=== PATIENT | male | born 1980 | race Caucasian/White ===

== ENCOUNTER 2017-11-29 13:53 | Emergency (ER) | payer OTHER ==
[~2017-11-29] VITALS: Ht 177.8 cm; Wt 97.8 kg
[2017-11-29 13:59] VITALS: Ht 177.8 cm; Wt 97.8 kg
[2017-11-29] MEDS ORDERED: KETOROLAC TROMETHAMINE 30 MG/ML VIAL IV STA (14:18)
[2017-11-29] MEDS ORDERED: SODIUM CHLORIDE 0.9% 1000ML 1,000 ML IV STA (14:18)
[2017-11-29 14:44] LABS: BASO % 0.4 %; BASO ABS # 0.03 K/uL (0-0.2); EOS % 1.3 %; EOS ABS # 0.09 K/uL (0-0.5); HEMATOCRIT 48.7 % (42-52); HEMOGLOBIN 17.8 g/dL (14.0-18.0); IG# 0.02 K/uL (0.00-0.02); LYMPH % 27.5 %; LYMPH ABS # 1.94 K/uL (1.2-3.4); MEAN CELL VOLUME 89.9 fL (80-100); MEAN CORPUSCULAR HEMOGLOBIN 32.8 pg (25-34); MEAN CORPUSCULAR HGB CONC 36.6 g/dl (32-36); MEAN PLATELET VOLUME 9.1 fL (7.4-10.4); MONO % 11.2 %; MONO ABS # 0.79 K/uL (0.11-0.59); NEUT % 59.3 %; NEUT ABS # 4.18 K/uL (1.4-6.5); PLATELET COUNT 242 K/uL (130-400); RED CELL DISTRIBUTION WIDTH CV 13.1 % (11.5-14.5); RED CELL DISTRIBUTION WIDTH SD 42.7 fL (36.4-46.3); WHITE BLOOD COUNT 7.05 K/uL (4.8-10.8)
[2017-11-29 15:01] LABS: BLOOD UREA NITROGEN 13 mg/dl (7-18); CALCIUM 9.3 mg/dl (8.5-10.1); CARBON DIOXIDE 26 mmol/L (21-32); CKMB < 1.0 ng/ml (0.5-3.6); CREATININE 0.88 mg/dl (0.60-1.40); GLUCOSE 86 mg/dl (70-99); POTASSIUM 3.7 mmol/L (3.5-5.1); SODIUM 136 mmol/L (136-145)
--- NOTE | 2017-11-29 15:22 | DIAGNOSTIC IMAGING REPORT ---
CHEST ONE VIEW PORTABLE CLINICAL HISTORY: 36 years-old Male presenting with Chest Pain. TECHNIQUE: Portable upright AP view of the chest was obtained. COMPARISON: None. FINDINGS: Cardiomediastinal silhouette normal. No focal opacity. No large effusion or pneumothorax. Osseous structures normal. Upper abdomen normal. IMPRESSION: 1. No acute cardiopulmonary disease. Electronically signed by: Hunter Núñez M.D. 11/29/2017 3:21 PM Dictated Date/Time: 11/29/2017 3:20 PM
[2017-11-29] MEDS ORDERED: GI COCKTAIL PO STA (15:26)
[2017-11-29] MEDS ORDERED: LIDOCAINE HCL 2% VISC SOLN 20 ML UDC ONE (15:29)
[2017-11-29] MEDS ORDERED: ALUMINUM/MAGNESIUM SUSP 30 ML UDC ONE (15:30)
[2017-11-29 16:53] VITALS: BP 124/91; PULSE 87; TEMP 36.9; O2SAT 96
--- NOTE | 2017-11-29 17:50 | EMERGENCY ROOM VISIT NOTE ---
History Report prepared by Myranda: Anthony Blanca Under the Supervision of: Dr. Emanuel Roberts D.O. First contact with patient: 14:06 Chief Complaint: CHEST PAIN Stated Complaint: CHEST PAIN History of Present Illness The patient is a 36 year old male who presents to the Emergency Room with complaints of constant dull chest pain in the left pectoral region beginning 3 or 4 days ago. The patient states that he does not have a history of these symptoms. He reports that the pain is worsened when he pushes his shoulders forward. He states that it is not worse when he moves his arms. The patient notes that he felt slightly dizzy this morning. The patient reports that he smokes. Pain is also worsened when he palpates the spot on his chest. It also worsens with breathing as well. No other exacerbating or remitting factors. Patient denies swelling of calves, recent trips, history of immobilization or recent surgery, prior history of DVT, hemoptysis, and history of malignancy. Patient denies diabetes, hypertension, hyperlipidemia, CAD, and history of sudden at a young age. Pt denies headache, change in vision, fevers, shortness of breath, nausea, vomiting, diarrhea, pain with urination, and melena. Source of History: patient Onset: 3 or 4 days ago Position: chest Quality: dull Timing: constant Modifying Factors (Worsening): breathing, other (palpation) Associated Symptoms: No fevers, No headache, No SOB, No nausea, No vomiting , No diarrhea Note: dizziness Review of Systems See HPI for pertinent positives & negatives. A total of 10 systems reviewed and were otherwise negative. Past Medical & Surgical Medical Problems: (1) Kidney stones (2) MRSA Family History Patient reports no known family medical history. Social History Smoking Status: Current Every Day Smoker Marital Status: Housing Status: lives with family Occupation Status: employed Current/Historical Medications No Active Prescriptions or Reported Meds Allergies Coded Allergies: No Known Allergies (Unverified , 11/29/17) Physical Exam Vital Signs Date Time Temp Pulse Resp B/P (MAP) Pulse Ox O2 Delivery O2 Flow Rate FiO2 11/29/17 16:53 36.9 87 16 124/91 96 11/29/17 15:23 87 16 124/91 96 Room Air 11/29/17 14:34 92 11/29/17 13:59 36.9 110 18 152/99 97 Room Air Physical Exam GENERAL: Sitting up in bed, alert, well appearing, well nourished, no distress, non-toxic EYE EXAM: normal conjunctiva. OROPHARYNX: no exudate, no erythema, lips, buccal mucosa, and tongue normal and mucous membranes are moist NECK: supple, no nuchal rigidity, no adenopathy, non-tender CHEST: Acute reproducible anterior chest wall pain. LUNGS: Clear to auscultation. Normal chest wall mechanics HEART: no murmurs, S1 normal and S2 normal ABDOMEN: abdomen soft, non-tender, normo-active bowel sounds, no masses, no rebound or guarding. BACK: Back is symmetrical on inspection and there is no deformity, no midline tenderness, no CVA tenderness. SKIN: no rashes and no bruising UPPER EXTREMITIES: upper extremities are grossly normal. Radial pulses equal bilateral LOWER EXTREMITIES: No pitting edema. Calves are equal bilateral NEURO EXAM: Normal sensorium, cranial nerves II-XII grossly intact, normal speech, no gross weakness of arms, no gross weakness of legs. Medical Decision & Procedures ER Provider Diagnostic Interpretation: Radiology results as stated below per my review and the radiologist's interpretation: CHEST ONE VIEW PORTABLE CLINICAL HISTORY: 36 years-old Male presenting with Chest Pain. TECHNIQUE: Portable upright AP view of the chest was obtained. COMPARISON: None. FINDINGS: Cardiomediastinal silhouette normal. No focal opacity. No large effusion or pneumothorax. Osseous structures normal. Upper abdomen normal. IMPRESSION: 1. No acute cardiopulmonary disease. Electronically signed by: Hunter Núñez M.D. 11/29/2017 3:21 PM Dictated Date/Time: 11/29/2017 3:20 PM Laboratory Results 11/29/17 14:34 Red Blood Count 5.42, Mean Corpuscular Volume 89.9, Mean Corpuscular Hemoglobin 32.8, Mean Corpuscular Hemoglobin Concent 36.6, Mean Platelet Volume 9.1, Neutrophils (%) (Auto) 59.3, Lymphocytes (%) (Auto) 27.5, Monocytes (%) (Auto) 11.2, Eosinophils (%) (Auto) 1.3, Basophils (%) (Auto) 0.4, Neutrophils # (Auto ) 4.18, Lymphocytes # (Auto) 1.94, Monocytes # (Auto) 0.79, Eosinophils # (Auto ) 0.09, Basophils # (Auto) 0.03 11/29/17 14:34 Test 11/29/17 14:34 11/29/17 15:28 White Blood Count 7.05 K/uL (4.8-10.8) Red Blood Count 5.42 M/uL (4.7-6.1) Hemoglobin 17.8 g/dL (14.0-18.0) Hematocrit 48.7 % (42-52) Mean Corpuscular Volume 89.9 fL (80-100) Mean Corpuscular Hemoglobin 32.8 pg (25-34) Mean Corpuscular Hemoglobin Concent 36.6 g/dl (32-36) Platelet Count 242 K/uL (130-400) Mean Platelet Volume 9.1 fL (7.4-10.4) Neutrophils (%) (Auto) 59.3 % Lymphocytes (%) (Auto) 27.5 % Monocytes (%) (Auto) 11.2 % Eosinophils (%) (Auto) 1.3 % Basophils (%) (Auto) 0.4 % Neutrophils # (Auto) 4.18 K/uL (1.4-6.5) Lymphocytes # (Auto) 1.94 K/uL (1.2-3.4) Monocytes # (Auto) 0.79 K/uL (0.11-0.59) Eosinophils # (Auto) 0.09 K/uL (0-0.5) Basophils # (Auto) 0.03 K/uL (0-0.2) RDW Standard Deviation 42.7 fL (36.4-46.3) RDW Coefficient of Variation 13.1 % (11.5-14.5) Immature Granulocyte % (Auto) 0.3 % Immature Granulocyte # (Auto) 0.02 K/uL (0.00-0.02) Anion Gap 7.0 mmol/L (3-11) Est Creatinine Clear Calc Drug Dose 134.8 ml/min Estimated GFR () 127.2 Estimated GFR (Non- 109.7 BUN/Creatinine Ratio 15.2 (10-20) Calcium Level 9.3 mg/dl (8.5-10.1) Total Creatine Kinase 101 U/L (39-308) Creatine Kinase MB < 1.0 ng/ml (0.5-3.6) Creatine Kinase MB Ratio (0-3.0) Troponin I < 0.015 ng/ml (0-0.045) D-Dimer < 190 ug/L FEU (0-500) Laboratory results per my review. Medications Administered Medications (Trade) Dose Ordered Sig/Katia Route Start Time Stop Time Status Last Admin Dose Admin Sodium Chloride 1,000 ml @ 999 mls/hr Q1H1M STAT IV 11/29/17 14:18 11/29/17 15:18 DC 11/29/17 14:37 999 MLS/HR Ketorolac Tromethamine (Toradol Inj) 30 mg NOW STAT IV 11/29/17 14:18 11/29/17 14:19 DC 11/29/17 14:50 30 MG Lidocaine HCl (Viscous Lidocaine 2% Soln) 20 ml STK-MED ONCE .ROUTE 11/29/17 15:29 11/29/17 15:30 DC 11/29/17 15:32 20 ML Al Hydroxide/Mg Hydroxide (Maalox Susp) 30 ml STK-MED ONCE .ROUTE 11/29/17 15:30 11/29/17 15:31 DC 11/29/17 15:32 30 ML ECG Per My Interpretation Indication: chest pain Rate (beats per minute): 95 Rhythm: sinus rhythm Findings: other (normal axis. No PVCs.) ED Course ED COURSE: Vital signs were reviewed and showed hypertension that is felt to be situational The patients medical record was reviewed The above diagnostic studies were performed and reviewed. ED treatments and interventions as stated above. 1410: The patient was evaluated in room C9. A complete history and physical examination was performed. 1650: Upon reevaluation, the patient is resting. I discussed my findings with the patient and he understands and agrees with the treatment plan. Based on the patients age, coexisting illnesses, exam and lab findings the decision to treat as an outpatient was made. The patient remained stable while under my care. The patient appeared well at the time of discharge. Medical Decision Differential diagnoses includes but is not limited to acute coronary syndrome, myocardial infarction, pericarditis, pulmonary embolus, aortic dissection, pneumonia, pneumothorax, musculoskeletal, shingles, esophageal. Patient is a 36-year-old male that presents to the ER for chest pain which has been present for the past 3-4 days. Pain is worsened on palpation and movement. No other exacerbating or remitting factors. He does have a history of smoking. CBC with BMP and troponin were negative. Troponin negative with pain present greater than 8 hours. D-dimer was negative as well. Chest x-ray unremarkable. Pain was completely reproducible on exam. Patient was given Toradol and the pain significantly improved. He also did have a component of a burning/reflux is given a GI cocktail and that resolved that pain as well. He was updated at bedside discharge follow-up with PCP as an outpatient. Discussed with Pt concerning signs and symptoms to watch out for. Pt was instructed to follow up with their PCP and discussed with the patient their option to return to the ED at anytime for persistent or worsening symptoms. The appropriate anticipatory guidance and out-patient management, including indications for return to the emergency department, were explained at length to the patient and understood. Medication Reconcilliation Current Medication List: was personally reviewed by me Blood Pressure Screening Patient's blood pressure: Elevated blood pressure Blood pressure disposition: Elevated BP felt to be situational Impression Primary Impression: Chest wall pain Scribe Attestation The scribe's documentation has been prepared under my direction and personally reviewed by me in its entirety. I confirm that the note above accurately reflects all work, treatment, procedures, and medical decision making performed by me. Departure Information Dispostion Home / Self-Care Prescriptions No Active Prescriptions or Reported Meds Referrals Jaspreet Farmer III, M.D. (PCP) Forms Call Back Authorization, HOME CARE DOCUMENTATION FORM, IMPORTANT VISIT INFORMATION Patient Instructions My [facility] Additional Instructions Please make sure that you follow up with your PCP in the next 24 hours. Any worsening of her symptoms including chest pain, passing out, shortness of breath , weakness or numbness in your arms or legs, or any other concerning signs or symptoms please return to the ER immediately. Please take Motrin or Tylenol as needed for pain.
== END 2017-11-29 16:54 | disposition home or self-care (01) ==
LOC: C.EDB 13:54 → C.EDC 16:54
DX: R07.9 Chest pain, unspecified (principal); F17.200 Nicotine dependence, unspecified, uncomplicated

== ENCOUNTER 2022-01-28 10:33 | Inpatient (IN) ==
[2022-01-28] MEDS ORDERED: OPTIRAY 300 500mL IV ONE (10:55)
--- NOTE | 2022-01-28 10:58 | CT Scan Report ---
HEAD CT NONCONTRAST CT DOSE: 537.48 mGy.cm HISTORY: Weakness. Numbness within the right extremities. TECHNIQUE: Multiaxial CT images of the head were performed without the use of intravenous contrast. A utomated exposure control was utilized for this study. A dose lowering technique was utilized adheri ng to the principles of ALARA. Comparison: None. Findings: The paranasal sinuses and mastoid air cells are clear. The calvarium and skull base are int act. The ventricles and sulci are within normal limits. There is no mass, hematoma, midline shift, or acute infarct. Impression: No acute intracranial abnormality. ACT 112: Negative or not required by law. Electronically signed by: Mart Flowers M.D. 01/28/2022 10:57 AM
--- NOTE | 2022-01-28 10:59 | Emergency Department Note ---
Impression & Plan Acute cerebrovascular accident (CVA), Acute right-sided weakness, Dysarthria, Tobacco use ED Provider Note NAME: MILTON PANG AGE: 41 SEX: M : 1980 ARRIVES VIA: Walk-In INFORMANT: Patient, ED PROVIDER(S): Edward Ray MD Chief Complaint: Strokelike symptoms HPI: Patient does present through triage as a stroke alert due to concern for strokelike symptoms that began while driving around 9 AM this morning. The patient denies any head or neck pain but did notice some difficulty with ambulation and thought he had some weakness of the right side. The patient is in the [employer]. Patient denies any prior history of stroke or mini stroke and has no pertinent past medical history. The patient does not take any medications on a regular basis. Patient denies any recent falls or trauma. The patient states that he felt generally unwell while driving and then when he tried to fill out some paperwork he could not do so with his right arm and needed to to write with his left hand. Patient denies any chest pains or shortness of breath. The patient did also think that he had some associated slurred speech which has since resolved. The patient does not take any blood thinning medications. Patient states that other than the slurred speech this has improved but that his weakness has remained the same and has had associated ambulatory dysfunction. ROS: See HPI for pertinent positives and negatives. A total of 10 systems were reviewed and otherwise negative. Past medical history: See below Surgical history: See below Social history: See below Physical Exam: GENERAL: NAD, wearing a mask, non-toxic. EYE EXAM: Normal conjunctiva. PERRL, no anisocoria and EOM's grossly intact w/o pain. NECK: Supple, no nuchal rigidity, no adenopathy, non-tender. No signs of meningismus. FROM of the neck with good chin to chest and neck extension. No stridor. LUNGS: Clear to auscultation. Normal chest wall mechanics. HEART: NSR, no MRG. ABDOMEN: Abdomen soft, non-tender, normo-active bowel sounds, no masses, no rebound or guarding. BACK: No CVA TTP. SKIN: No rashes and no bruising. UPPER EXTREMITIES: Upper extremities are grossly normal. LOWER EXTREMITIES: Grossly normal, no edema. NEURO EXAM: A&O x3, cranial nerves II-XII grossly intact, normal speech, 4-5 strength right upper and right lower extremity compared to 5 out of 5 strength in left upper and left lower extremity. No sensory deficits, good [id number]. Differential diagnoses: Infection, dehydration, metabolic abnormality, hyp o/hyperglycemia, electrolyte disturbance, anemia, hypoxia, cardiac sources, intracerebral event, toxicologic, neurologic, as well as other pathologies. Course: Patient was seen and evaluated the bedside. Full history physical exam was performed. EKG interpreted by me Sinus tachycardia, rate of 104, normal intervals, normal axis, no ST elevations. Imaging Studies: See Below Cardiac monitoring: An order was placed for continuous cardiac monitoring. The monitor shows a rate of 82 with sinus rhythm. MDM: Patient was seen due to concern for strokelike symptoms. The patient was an immediate code stroke from triage and was taken to CT. I did evaluate the patient and did initiate a telestroke consult. Blood work was obtained. The patient did have a CT head and CT angiography of the head and neck. CT head and angiography's of the head and neck were negative. Patient was seen by telestroke. The patient has unremarkable blood work and imaging of the head and neck with negative CT and CT angiography. Decision was made to administer TN K after discussion with the patient. This was administered. The patient was admitted to the medicine service after speaking with Noreen Looney PA-C and Dr. Nelson. The patient was to be admitted to the intensive care unit. Critical Care: I have personally spent 45 minutes of critical care time in direct management of this patient. This includes bedside care, interpretation of diagnostic studies, and testing, discussion with consultants, patient, and family members, and other require inpatient management activities. This 45 minutes is in excess of all separately billable procedures. Past Med/Surg History Medical History (Updated 01/28/22 @ 16:58 by Edward Ray MD) Alcohol use Chest wall pain Kidney stones Stroke-like symptoms Thoracic compression fracture Thrombolytic therapy administered within 2 hours of onset of symptoms Tobacco abuse Surgical History No pertinent past surgical history Social History Smoking Status: Current every day smoker Tobacco Type: Cigarettes Do You Dip or Chew Tobacco: No; Hx Alcohol Use: Yes Alcohol type: hard liquor Hx Substance Use: No Preferred Language: Grenadian Communication Ability: Effective Field Specialist Required: No Beliefs That Will Affect Care: None Current Living Situation: Family Other Information That Helps Us Care for You: No Feels Safe at Home: Yes Safety Concerns: Feels Safe At This Time Assistive Devices: None Allergies Allergies Allergy/AdvReac Type Severity Reaction Status Date / Time No Known Allergies Allergy Unverified 01/28/22 11:29 Home Meds Home Medications Medication Instructions Recorded Confirmed trazodone 50 mg tablet 50 mg PO HS 01/28/22 01/28/22 Results & Data (ED) Vital Signs Vital Signs - 24 hr 01/28/22 10:38 01/28/22 10:40 01/28/22 10:40 Temperature 36.2 C L Temperature Source Temporal Artery Scan Pulse Rate 97 H 92 H Pulse Rate [Apical] Pulse Rate from SpO2 Sensor Pulse Rhythm Regular Pulse Strength Normal Respiratory Rate 20 Respiratory Effort / Characteristics Non-Labored Spontaneous Respiratory Depth Normal Respiratory Pattern Regular Blood Pressure 145/87 H Blood Pressure [Left Arm] Blood Pressure Mean 106 Blood Pressure Mean [Left Arm] Blood Pressure Position Sitting Pulse Oximetry 96 98 Oxygen Delivery Method Room Air Room Air Room Air Sepsis Recent Fever Within 48 Hours No Sepsis New/Unexplained Change in Mental Status No Sepsis Action Taken by Nursing No Action Required 01/28/22 10:34 01/28/22 11:04 01/28/22 11:51 Temperature Temperature Source Pulse Rate Pulse Rate [Apical] 92 H 87 Pulse Rate from SpO2 Sensor Pulse Rhythm Pulse Strength Respiratory Rate 16 16 Respiratory Effort / Characteristics Respiratory Depth Respiratory Pattern Blood Pressure Blood Pressure [Left Arm] 157/102 H 138/101 H Blood Pressure Mean Blood Pressure Mean [Left Arm] 120 113 Blood Pressure Position Pulse Oximetry 98 95 Oxygen Delivery Method Room Air Sepsis Recent Fever Within 48 Hours Sepsis New/Unexplained Change in Mental Status Sepsis Action Taken by Nursing 01/28/22 10:55 01/28/22 10:55 01/28/22 11:00 Temperature Temperature Source Pulse Rate 104 H Pulse Rate [Apical] Pulse Rate from SpO2 Sensor 104 H 93 H Pulse Rhythm Pulse Strength Respiratory Rate 13 13 Respiratory Effort / Characteristics Respiratory Depth Respiratory Pattern Blood Pressure 178/123 H Blood Pressure [Left Arm] Blood Pressure Mean 141 Blood Pressure Mean [Left Arm] Blood Pressure Position Pulse Oximetry 96 99 Oxygen Delivery Method Sepsis Recent Fever Within 48 Hours Sepsis New/Unexplained Change in Mental Status Sepsis Action Taken by Nursing 01/28/22 11:04 01/28/22 11:04 01/28/22 11:10 Temperature Temperature Source Pulse Rate 93 H Pulse Rate [Apical] Pulse Rate from SpO2 Sensor 92 H Pulse Rhythm Pulse Strength Respiratory Rate 20 11 L Respiratory Effort / Characteristics Respiratory Depth Respiratory Pattern Blood Pressure 157/102 H Blood Pressure [Left Arm] Blood Pressure Mean 120 Blood Pressure Mean [Left Arm] Blood Pressure Position Pulse Oximetry 97 Oxygen Delivery Method Sepsis Recent Fever Within 48 Hours Sepsis New/Unexplained Change in Mental Status Sepsis Action Taken by Nursing 01/28/22 11:14 01/28/22 11:14 01/28/22 11:15 Temperature Temperature Source Pulse Rate 95 H Pulse Rate [Apical] Pulse Rate from SpO2 Sensor Pulse Rhythm Pulse Strength Respiratory Rate 16 Respiratory Effort / Characteristics Respiratory Depth Respiratory Pattern Blood Pressure 144/102 H 145/95 H Blood Pressure [Left Arm] Blood Pressure Mean 116 111 Blood Pressure Mean [Left Arm] Blood Pressure Position Pulse Oximetry Oxygen Delivery Method Sepsis Recent Fever Within 48 Hours Sepsis New/Unexplained Change in Mental Status Sepsis Action Taken by Nursing 01/28/22 11:15 01/28/22 11:20 01/28/22 11:30 Temperature Temperature Source Pulse Rate 87 92 H Pulse Rate [Apical] Pulse Rate from SpO2 Sensor Pulse Rhythm Pulse Strength Respiratory Rate 15 17 Respiratory Effort / Characteristics Respiratory Depth Respiratory Pattern Blood Pressure 144/102 H Blood Pressure [Left Arm] Blood Pressure Mean 116 Blood Pressure Mean [Left Arm] Blood Pressure Position Pulse Oximetry Oxygen Delivery Method Sepsis Recent Fever Within 48 Hours Sepsis New/Unexplained Change in Mental Status Sepsis Action Taken by Nursing 01/28/22 11:30 01/28/22 11:38 01/28/22 11:38 Temperature Temperature Source Pulse Rate 84 86 Pulse Rate [Apical] Pulse Rate from SpO2 Sensor 88 Pulse Rhythm Pulse Strength Respiratory Rate 16 21 Respiratory Effort / Characteristics Respiratory Depth Respiratory Pattern Blood Pressure 134/97 Blood Pressure [Left Arm] Blood Pressure Mean 109 Blood Pressure Mean [Left Arm] Blood Pressure Position Pulse Oximetry 96 Oxygen Delivery Method Sepsis Recent Fever Within 48 Hours Sepsis New/Unexplained Change in Mental Status Sepsis Action Taken by Nursing 01/28/22 11:40 01/28/22 11:41 01/28/22 11:41 Temperature Temperature Source Pulse Rate 91 H 86 Pulse Rate [Apical] Pulse Rate from SpO2 Sensor 91 H 84 Pulse Rhythm Pulse Strength Respiratory Rate 16 20 Respiratory Effort / Characteristics Respiratory Depth Respiratory Pattern Blood Pressure 128/104 H Blood Pressure [Left Arm] Blood Pressure Mean 112 Blood Pressure Mean [Left Arm] Blood Pressure Position Pulse Oximetry 97 96 Oxygen Delivery Method Sepsis Recent Fever Within 48 Hours Sepsis New/Unexplained Change in Mental Status Sepsis Action Taken by Nursing 01/28/22 11:55 01/28/22 12:00 Temperature Temperature Source Pulse Rate Pulse Rate [Apical] 83 83 Pulse Rate from SpO2 Sensor Pulse Rhythm Pulse Strength Respiratory Rate 16 16 Respiratory Effort / Characteristics Respiratory Depth Respiratory Pattern Blood Pressure Blood Pressure [Left Arm] 138/101 H 132/93 Blood Pressure Mean Blood Pressure Mean [Left Arm] 113 106 Blood Pressure Position Pulse Oximetry 95 95 Oxygen Delivery Method Sepsis Recent Fever Within 48 Hours Sepsis New/Unexplained Change in Mental Status Sepsis Action Taken by [facility] Medications Current Medication List: was personally reviewed by me Laboratory Data Attestation: I reviewed the patient's lab results. Result diagrams: 01/28/22 10:54 01/28/22 10:54 Lab Results 01/28/22 01/28/22 01/28/22 Range/Units 10:54 10:54 10:54 WBC 5.33 (4.8-10.8) K/ul RBC 4.92 (4.63-6.08) M/uL Hgb 16.2 (14.0-18.0) g/dl POC Hgb (14.0-18.0) g/dl Hct 45.3 (40.1-51.0) % POC Hct (42-52) % MCV 92.1 (80.0-100.0) fL MCH 32.9 (25.0-34.0) pg MCHC 35.8 (32.0-36.0) g/dL RDW Std Deviation 43.0 (36.4-46.3) fL RDW Coeff of Sergio 12.8 (11.5-14.5) % Plt Count 220 (130-400) K/uL MPV 9.1 L (9.4-12.4) fL PT 11.3 (9.0-12.0) Seconds INR 1.1 (0.9-1.1) APTT 28.9 (21.0-31.0) Seconds PTT Ratio 1.1 POC Sodium (135-144) mmol/L Sodium 137 (136-145) mmol/L POC Potassium (3.3-5.0) mmol/L Potassium 4.3 (3.5-5.1) mmol/L POC Chloride (101-112) mmol/L Chloride 104 (98-107) mmol/L Carbon Dioxide 26 (21-32) mmol/L POC Total CO2 (24-31) mmol/L Anion Gap 7 (3-11) POC Anion Gap (16-25) mmol/L POC BUN (7-18) mg/dl BUN 14 (6-23) mg/dl Creatinine 0.95 (0.6-1.4) mg/dl POC Creatinine (0.6-1.3) mg/dl Est Cr Clr Drug Dosing 122.3 ml/min Est GFR ( Amer) 114.0 ml/min Est GFR (Non-Af Amer) 98.3 ml/min BUN/Creatinine Ratio 14.7 (10-20) Glucose 91 (70-99(Fasting)) mg/dl POC Glucose (other) (70-99) mg/dl Calcium 8.9 (8.5-10.1) mg/dl POC Ioniz Calcium Tulio (1.12-1.32) mmol/l Magnesium 1.8 (1.7-2.4) mg/dl Total Bilirubin 0.8 (0.2-1.0) mg/dl AST 23 (13-39) U/L ALT 29 (7-52) U/L Alkaline Phosphatase 54 (34-104) U/L Total Protein 6.6 (6.0-8.3) gm/dl Albumin 4.1 (3.4-5.0) gm/dl Globulin 2.5 (2.5-4.0) gm/dl Albumin/Globulin Ratio 1.6 (0.9-2) SARS-CoV-2, RNA, NAAT (NEGATIVE) 01/28/22 01/28/22 Range/Units 11:02 11:53 WBC (4.8-10.8) K/ul RBC (4.63-6.08) M/uL Hgb (14.0-18.0) g/dl POC Hgb 16.7 (14.0-18.0) g/dl Hct (40.1-51.0) % POC Hct 49 (42-52) % MCV (80.0-100.0) fL MCH (25.0-34.0) pg MCHC (32.0-36.0) g/dL RDW Std Deviation (36.4-46.3) fL RDW Coeff of Sergio (11.5-14.5) % Plt Count (130-400) K/uL MPV (9.4-12.4) fL PT (9.0-12.0) Seconds INR (0.9-1.1) APTT (21.0-31.0) Seconds PTT Ratio POC Sodium 138 (135-144) mmol/L Sodium (136-145) mmol/L POC Potassium 4.3 (3.3-5.0) mmol/L Potassium (3.5-5.1) mmol/L POC Chloride 101 (101-112) mmol/L Chloride (98-107) mmol/L Carbon Dioxide (21-32) mmol/L POC Total CO2 24 (24-31) mmol/L Anion Gap (3-11) POC Anion Gap 18.0 (16-25) mmol/L POC BUN 14 (7-18) mg/dl BUN (6-23) mg/dl Creatinine (0.6-1.4) mg/dl POC Creatinine 1.0 (0.6-1.3) mg/dl Est Cr Clr Drug Dosing ml/min Est GFR ( Amer) ml/min Est GFR (Non-Af Amer) ml/min BUN/Creatinine Ratio (10-20) Glucose (70-99(Fasting)) mg/dl POC Glucose (other) 96 (70-99) mg/dl Calcium (8.5-10.1) mg/dl POC Ioniz Calcium Tulio 1.12 (1.12-1.32) mmol/l Magnesium (1.7-2.4) mg/dl Total Bilirubin (0.2-1.0) mg/dl AST (13-39) U/L ALT (7-52) U/L Alkaline Phosphatase (34-104) U/L Total Protein (6.0-8.3) gm/dl Albumin (3.4-5.0) gm/dl Globulin (2.5-4.0) gm/dl Albumin/Globulin Ratio (0.9-2) SARS-CoV-2, RNA, NAAT NEGATIVE (NEGATIVE) Administered Medications Atorvastatin Calcium (Atorvastatin 40 Mg Tab) 40 mg PO QAM TAMIKO Stop: 02/27/22 14:00 Last Admin: 01/28/22 15:09 Dose: 40 mg Documented By: RAP Discontinued Medications Tenecteplase 25 mg/ Syringe 5 mls @ 60 mls/min IV NOW ONE; Protocol Stop: 01/28/22 11:35 Last Admin: 01/28/22 11:39 Dose: 60 mls/min Documented By: YUN Co-signed By: JEIMY Ioversol (Optiray 300 500ml) 120 ml IV ONCE ONE Stop: 01/28/22 10:56 Last Admin: 01/28/22 10:50 Dose: 120 ml Documented By: ELIZA Miscellaneous (Stat Iv) 1 each N/A NOW STA Stop: 01/28/22 11:25 Last Admin: 01/28/22 11:57 Dose: 1 each Documented By: YUN Sodium Chloride (Sodium Chloride 0.9% 10ml Flush) 20 ml IV NOW STA Stop: 01/28/22 11:25 Last Admin: 01/28/22 11:41 Dose: 20 ml Documented By: YUN Imaging Data Radiologist's Impression: Head CT 01/28/22 10:[address] DOSE: 537.48 mGy.cm HISTORY: Weakness. Numbness within the right extremities. TECHNIQUE: Multiaxial CT images of the head were performed without the use of intravenous contrast. Automated exposure control was utilized for this study. A dose lowering technique was utilized adhering to the principles of ALARA. Comparison: None. Findings: The paranasal sinuses and mastoid air cells are clear. The calvarium and skull base are intact. The ventricles and sulci are within normal limits. T here is no mass, hematoma, midline shift, or acute infarct. Impression: No acute intracranial abnormality. ACT 112: Negative or not required by law. Electronically signed by: Mart Flowers M.D. 01/28/2022 10:57 AM Head CTA 01/28/22 10:46 CT angio neck with con, CT angio head w con CLINICAL HISTORY: 41 years-old Male with slurred speech, amb dysfunction. Acute strokelike symptoms COMPARISON STUDY: Head CT of same day TECHNIQUE: Following the IV administration of 120 mL of Optiray, CT angiogram of the head and neck was performed from the aortic arch to the skull apex. Images are reviewed in the axial, sagittal, and coronal planes. 3-D MIPS images are created and assessed. IV contrast was administered without complication. All measurements were calculated based on NASCET criteria. A dose lowering techniqu e was utilized adhering to the principles of ALARA. CT DOSE: 570.40 mGy.cm FINDINGS: Three-vessel morphology of the thoracic aortic arch. There is patency of the innominate and imaged subclavian arteries. The common and internal carotid arteries appear patent. There is no significant atherosclerotic vascular disease. The middle and anterior cerebral arteries are patent. The vertebral, basilar and posterior cerebral arteries appear normal. Cerebral venous sinuses are patent. There is no abnormal intracranial enhancement. Lung apices are clear. Unremarkable soft tissues. Polyploid mucosal thickening of the maxillary sinuses. No acute fracture. Degenerative changes of the spine. IMPRESSION:Unremarkable CTA of the head and neck. ACT 112: Negative or not required by law. The above report was generated using voice recognition software. It may contain grammatical, syntax or spelling errors. Electronically signed by: Valentin Padilla M.D. 01/28/2022 11:01 AM Neck CTA 01/28/22 10:46 CT angio neck with con, CT angio head w con CLINICAL HISTORY: 41 years-old Male with slurred speech, amb dysfunction. Acute strokelike symptoms COMPARISON STUDY: Head CT of same day TECHNIQUE: Following the IV administration of 120 mL of Optiray, CT angiogram of the head and neck was performed from the aortic arch to the skull apex. Images are reviewed in the axial, sagittal, and coronal planes. 3-D MIPS images are created and assessed. IV contrast was administered without complication. All m easurements were calculated based on NASCET criteria. A dose lowering technique was utilized adhering to the principles of ALARA. CT DOSE: 570.40 mGy.cm FINDINGS: Three-vessel morphology of the thoracic aortic arch. There is patency of the innominate and imaged subclavian arteries. The common and internal carotid arteries appear patent. There is no significant atherosclerotic vascular disease. The middle and anterior cerebral arteries are patent. The vertebral, basilar and posterior cerebral arteries appear normal. Cerebral venous sinuses are patent. There is no abnormal intracranial enhancement. Lung apices are clear. Unremarkable soft tissues. Polyploid mucosal thickening of the maxillary sinuses. No acute fracture. Degenerative changes of the spine. IMPRESSION:Unremarkable CTA of the head and neck. ACT 112: Negative or not required by law. The above report was generated using voice recognition software. It may contain grammatical, syntax or spelling errors. Electronically signed by: Valentin Padilla M.D. 01/28/2022 11:01 AM Brain MRI 01/28/22 12:03 MR brain wo con CLINICAL HISTORY: R sided weakness post tnk TECHNIQUE: Multiplanar and multisequence MR images of the brain were obtained without intravenous contrast. Comparison: None available at the time of this dictation. FINDINGS: There is a punctate focus of restricted diffusion in the left posterior frontal lobe. There is minimal associated edema and no significant mass effect or midline shift. The white matter is unremarkable. The ventricular system is normal in appearance. No mass is seen. There is no mass effect or midline shift. No evidence of hemorrhage is seen. No extra axial fluid collections are seen. The corpus callosum, pituitary gland, and cerebellar tonsils appear grossly unremarkable. Flow voids of the major intracranial arterial vessels are identified. The imaged portions of the paranasal sinuses, mastoid air cells, and orbits are unremarkable. IMPRESSION: Punctate infarct in the posterior left frontal lobe. No evidence of hemorrhagic transformation. ACT 112: Negative or not required by law. Electronically signed by: Santosh Bishop M.D. 01/28/2022 1:38 PM Discharge Plan Visit Data Chief Complaint: Neuro Symptoms/Deficit Stated Complaint: RIGHT HAND AND LEG NUMB, DOESN'T FEEL WELL ED Provider: Edward Ray Discharge Problem: Acute cerebrovascular accident (CVA), Acute right-sided weakness, Dysarthria, Tobacco use Patient Disposition: Admitted As Inpatient Discharge Instructions Interventions: ED Discharge Assessment Last Done: 01/28/22 13:03
--- NOTE | 2022-01-28 11:04 | CT Scan Report ---
CT angio neck with con, CT angio head w con CLINICAL HISTORY: 41 years-old Male with slurred speech, amb dysfunction. Acute strokelike symptom s COMPARISON STUDY: Head CT of same day TECHNIQUE: Following the IV administration of 120 mL of Optiray, CT angiogram of the head and neck wa s performed from the aortic arch to the skull apex. Images are reviewed in the axial, sagittal, and c oronal planes. 3-D MIPS images are created and assessed. IV contrast was administered without complic ation. All measurements were calculated based on NASCET criteria. A dose lowering technique was util ized adhering to the principles of ALARA. CT DOSE: 570.40 mGy.cm FINDINGS: Three-vessel morphology of the thoracic aortic arch. There is patency of the innominate and imaged madera bclavian arteries. The common and internal carotid arteries appear patent. There is no significant at herosclerotic vascular disease. The middle and anterior cerebral arteries are patent. The vertebral, basilar and posterior cerebral arteries appear normal. Cerebral venous sinuses are patent. There is n o abnormal intracranial enhancement. Lung apices are clear. Unremarkable soft tissues. Polyploid mucosal thickening of the maxillary sinus es. No acute fracture. Degenerative changes of the spine. IMPRESSION:Unremarkable CTA of the head and neck. ACT 112: Negative or not required by law. The above report was generated using voice recognition software. It may contain grammatical, syntax o r spelling errors. Electronically signed by: Valentin Padilla M.D. 01/28/2022 11:01 AM
[2022-01-28 11:05] LABS: Hematocrit (blood only) 45.3 % (40.1-51.0); Hemoglobin 16.2 g/dl (14.0-18.0); Mean Corpuscular Hemoglobin 32.9 pg (25.0-34.0); Mean Corpuscular Hgb Conc 35.8 g/dL (32.0-36.0); Mean Corpuscular Volume 92.1 fL (80.0-100.0); Mean Platelet Volume 9.1 fL (9.4-12.4); Platelet Count 220 K/uL (130-400); RDW Coefficient of Variation 12.8 % (11.5-14.5); Red Blood Count 4.92 M/uL (4.63-6.08); White Blood Count 5.33 K/ul (4.8-10.8)
[2022-01-28 11:15] LABS: iSTAT Hemoglobin 16.7 g/dl (14.0-18.0); iSTAT Ionized Calcium 1.12 mmol/l (1.12-1.32); iSTAT Potassium 4.3 mmol/L (3.3-5.0)
[2022-01-28 11:16] LABS: INR 1.1 (0.9-1.1); Partial Thromboplastin Ratio 1.1; Partial Thromboplastin Time 28.9 Seconds (21.0-31.0); Prothrombin Time 11.3 Seconds (9.0-12.0)
[2022-01-28] MEDS ORDERED: SODIUM CHLORIDE 0.9% 10ML FLUSH IV STA (11:24)
[2022-01-28] MEDS ORDERED: STAT IV STA (11:24)
[2022-01-28 11:28] LABS: Albumin Globulin Ratio 1.6 (0.9-2); Albumin Level 4.1 gm/dl (3.4-5.0); BUN Creatinine Ratio 14.7 (10-20); Bilirubin,Total 0.8 mg/dl (0.2-1.0); Calcium 8.9 mg/dl (8.5-10.1); Creatinine Clr Calc Pharmacy 122.3 ml/min; Est GFR (Non-African American) 98.3 ml/min; Globulin 2.5 gm/dl (2.5-4.0); Magnesium 1.8 mg/dl (1.7-2.4); Potassium 4.3 mmol/L (3.5-5.1); Total Protein 6.6 gm/dl (6.0-8.3)
[2022-01-28] MEDS ORDERED: No Aspirin within 24hrs of THROMBOLYTIC-Stroke PO SCH (11:30)
[2022-01-28] MEDS ORDERED: TENECTEPLASE 25 MG in SYRINGE 0 ML IV ONE (11:34)
--- NOTE | 2022-01-28 12:09 | History & Physical Report ---
Date of Service January 28, 2022 Assessment & Plan (1) Stroke-like symptoms: (2) Thrombolytic therapy administered within 2 hours of onset of symptoms: (3) Tobacco abuse: (4) Alcohol use: Plan 41 year old Male presents as a stroke alert with R hand and leg numbness/t ingling. CVA alert with [facility] [place] Trevino and TNK was admin at 1130. Symptoms resolved; head CT and head/neck CTA negative. Admit to ICU s/p TNK x 24 hours. Neuro consult. Stroke-like symptoms Thrombolytic therapy administered within 2 hours of onset of symptoms: Numbness/tingling in R hand and leg noticed around 0930; drove himself to ED [facility] Stroke teleconsult held with Dr. Trevino. TNK administered at [address] and Head/Neck CTA both unremarkable Brain MRI pending ICU admit s/p TNK administration for bleeding precautions Neuro consult: Dr. Rodriguez Start high dose statin therapy; Lipitor 40 mg once and reeval in AM Hold on DAPT until outside bleeding precautions and Neuro consult Lipid panel ordered. Last LDL in EMR was 11/2021 and LDL was 193; however, pt reports that he ate the morning of his fasting blood work. Will check Troponin and A1c. May benefit from an ECHO; none noted in chart. Tobacco abuse: Pt smokes cigarettes 1ppd x 20 years. Pt receptive to Nicotine patch; ordered Could be contributing risk factor for stroke-like symptoms Smoking cessation recommended and encouraged Alcohol use: Pt reports drinking 300-400mL of bourbon whiskey daily Last drink was 01/27 at 2300 No signs of withdrawal Pt has gone a day or two without any alcohol intake; but it has been months si nce he has missed a day of drinking AWSS set ordered; Folic Acid, Thiamine and Ativan PRN Anxiety: Follows with Dr. Barrera Takes Trazadone 50mg PO QHS; but he hasnt taken it in a week or two. In EMR pt is Rx Duloxitine but he does not take it Disposition: PCP: Dr. Farmer and Dr. Barrera Code: Full Point of Contact: Stefanie VTE Prophlaxis: SCD's I personally was able to review all current laboratory work and diagnostic images obtained in the ED. Additionally, I was able to review the patients past medication reconciliation and history with direct visualization in the patients chart. This patient was discussed with the hospitalist admitting attending, Dr. Nelson. History of Present Illness Chief Complaint: stroke like symptoms Primary Care Provider: Jaspreet Farmer MD Mr. Nichole is a 41 year old Male who drove himself to the ED today after he started experiencing numbness and loss of fine motor skills in his right hand which progressed to feeling like he could not move his right leg. He said that he had just arrived to [facility] where he was supposed to sign some paperwork for his new job position he accepted and he could not sign his name. He called his , Stefanie, who said he should go to the hospital. On arrival, he was a stroke alert and tele consult was held with [facility] and [place]. Trevino who suggested TNK administration which took place at 1130. Head CT and CTA of head and neck were unremarkable. He reports smoking cigarettes 1ppd x20 years. He reports consuming about 300-400 mL of bourbon whiskey daily. His last drink was 01/27 at 2300. He states that he has gone a day or two without any alcohol intake; but it has been months since he has missed a day of drinking. He denies recreational drug use. He reports being con sistent with seeing his outpatient provider on a routine basis and has not been told he has HTN or HLD. He did have a lipid panel drawn in November with an elevated LDL, but per patient he did eat the morning of his blood work; will check again while here. He denies any family history of CVA or cardiac issues. He is sitting upright in his hospital bed in no apparent distress. He was able to hold a meaningful conversation with accuracy and no difficulty with word finding. He denies COYNE, dizziness, SOB, Cp, palpitations, N/V/D, or ataxia. He was witnessed standing and using a urinal without ambulation or balance challenge. Pt is waiting to go to MRI now and will proceed to ICU for admission due to post-TNK administration. I was able to discuss in depth with Dr. Dos Santos who accepted this patient to ICU and also discussed via [facility] with Neurology. I personally was able to review all current laboratory work and diagnostic images obtained in the ED. Additionally, I was able to review the patients past medication reconciliation and history with direct visualization in the patients chart. This patient was discussed with the hospitalist admitting attending, Dr. Nelson. Please see A/P for further details. Allergies Allergy/AdvReac Type Severity Reaction Status Date / Time No Known Allergies Allergy Unverified 01/28/22 11:29 Home Medications Medication Instructions Recorded Confirmed Type trazodone 50 mg tablet 50 mg PO HS 01/28/22 01/28/22 History Past Med/Surg History Medical History (Updated 01/28/22 @ 14:13 by Nader Dos Santos MD) Alcohol use Chest wall pain Kidney stones Stroke-like symptoms Thoracic compression fracture Thrombolytic therapy administered within 2 hours of onset of symptoms Tobacco abuse Surgical History No pertinent past surgical history Social History Smoking Status: Never smoker Tobacco Type: Cigarettes Preferred Language: Lebanese Feels Safe at Home: Yes Review of Systems Review of Systems: Neuro: (-) Falls, trauma, slurred speech, (-) aphagia HEENT: (-) COYNE, dizziness, dysphagia, visual or auditory changes CV: (-) CP, palpitations, swelling Resp: (-) SOB GI: (-) appetite changes, N/V/D, bowel changes : (-) urinary changes Skin: (-) rashes Psych: (+) anxiety, depression Physical Exam Physical Exam: Neuro: AAOx4, PERRLA, no aphagia, memory changes, CNII-XII grossly intact post TNK administration HEENT: head normocephalic, moist mucus membranes CV: S1/S2, (-) M/G/R, (-) edema, cap refill < 3 seconds Resp: Lungs CTA in all ambriz. On RA GI: Abdomen S/NT/ND, Ax4 bowel sounds, (-) CVA tenderness Musculoskeletal: 5/5 B/L UE strength, 5/5 B/L LE strength. No gait disturbance Skin: (-) rashes , (-) erythema. Psych: euthymic mood Results & Data Results & Data ([facility]) Vital Signs (Past 12 Hours) Vital Signs Temp Pulse Pulse Resp BP BP Pulse Ox 01/28/22 12:00 83 16 132/93 95 01/28/22 11:55 83 16 138/101 H 95 01/28/22 11:41 128/104 H 01/28/22 11:41 86 20 96 01/28/22 11:40 91 H 16 97 01/28/22 11:38 134/97 01/28/22 11:38 86 21 96 01/28/22 11:30 84 16 01/28/22 11:30 144/102 H 01/28/22 11:20 92 H 17 01/28/22 11:15 87 15 01/28/22 11:15 145/95 H 01/28/22 11:14 95 H 16 01/28/22 11:14 144/102 H 01/28/22 11:10 93 H 11 L 01/28/22 11:04 157/102 H 01/28/22 11:04 20 97 01/28/22 11:00 13 99 01/28/22 10:55 104 H 13 96 01/28/22 10:55 178/123 H 01/28/22 11:51 87 16 138/101 H 95 01/28/22 11:04 92 H 16 157/102 H 98 01/28/22 10:34 01/28/22 10:40 92 H 98 01/28/22 10:40 01/28/22 10:38 36.2 C L 97 H 20 145/87 H 96 O2 Del Method 01/28/22 12:00 01/28/22 11:55 01/28/22 11:41 01/28/22 11:41 01/28/22 11:40 01/28/22 11:38 01/28/22 11:38 01/28/22 11:30 01/28/22 11:30 01/28/22 11:20 01/28/22 11:15 01/28/22 11:15 01/28/22 11:14 01/28/22 11:14 01/28/22 11:10 01/28/22 11:04 01/28/22 11:04 01/28/22 11:00 01/28/22 10:55 01/28/22 10:55 01/28/22 11:51 01/28/22 11:04 01/28/22 10:34 Room Air 01/28/22 10:40 Room Air 10/12/22 10:40 Room Air 01/28/22 10:38 Room Air Laboratory Results Short CBC 01/28/22 Range/Units 10:54 WBC 5.33 (4.8-10.8) K/ul Hgb 16.2 (14.0-18.0) g/dl Hct 45.3 (40.1-51.0) % Plt Count 220 (130-400) K/uL BMP 01/28/22 10:54 Sodium 137 Potassium 4.3 Chloride 104 Carbon Dioxide 26 BUN 14 Creatinine 0.95 Glucose 91 Calcium 8.9 Liver Function 01/28/22 Range/Units 10:54 Total Bilirubin 0.8 (0.2-1.0) mg/dl AST 23 (13-39) U/L ALT 29 (7-52) U/L Alkaline Phosphatase 54 (34-104) U/L Albumin 4.1 (3.4-5.0) gm/dl Diagnostic Findings Head CT 01/28/22 10:[address] DOSE: 537.48 mGy.cm HISTORY: Weakness. Numbness within the right extremities. TECHNIQUE: Multiaxial CT images of the head were performed without the use of intravenous contrast. Automated exposure control was utilized for this study. A dose lowering technique was utilized adhering to the principles of ALARA. Comparison: None. Findings: The paranasal sinuses and mastoid air cells are clear. The calvarium and skull base are intact. The ventricles and sulci are within normal limits. There is no mass, hematoma, midline shift, or acute infarct. Impression: No acute intracranial abnormality. ACT 112: Negative or not required by law. Electronically signed by: Mart Flowers M.D. 01/28/2022 10:57 AM Head CTA 01/28/22 10:46 CT angio neck with con, CT angio head w con CLINICAL HISTORY: 41 years-old Male with slurred speech, amb dysfunction. Acute strokelike symptoms COMPARISON STUDY: Head CT of same day TECHNIQUE: Following the IV administration of 120 mL of Optiray, CT angiogram of the head and neck was performed from the aortic arch to the skull apex. Images are reviewed in the axial, sagittal, and coronal planes. 3-D MIPS images are created and assessed. IV contrast was administered without complication. All measurements were calculated based on NASCET criteria. A dose lowering technique was utilized adhering to the principles of ALARA. CT DOSE: 570.40 mGy.cm FINDINGS: Three-vessel morphology of the thoracic aortic arch. There is patency of the innominate and imaged subclavian arteries. The common and internal carotid arteries appear patent. There is no significant atherosclerotic vascular disease. The middle and anterior cerebral arteries are patent. The vertebral, basilar and posterior cerebral arteries appear normal. Cerebral venous sinuses are patent. There is no abnormal intracranial enhancement. Lung apices are clear. Unremarkable soft tissues. Polyploid mucosal thickening of the maxillary sinuses. No acute fracture. Degenerative changes of the spine. IMPRESSION:Unremarkable CTA of the head and neck. ACT 112: Negative or not required by law. The above report was generated using voice recognition software. It may contain grammatical, syntax or spelling errors. Electronically signed by: Valentin Padilla M.D. 01/28/2022 11:01 AM Neck CTA 01/28/22 10:46 CT angio neck with con, CT angio head w con CLINICAL HISTORY: 41 years-old Male with slurred speech, amb dysfunction. Acute strokelike symptoms COMPARISON STUDY: Head CT of same day TECHNIQUE: Following the IV administration of 120 mL of Optiray, CT angiogram of the head and neck was performed from the aortic arch to the skull apex. Images are reviewed in the axial, sagittal, and coronal planes. 3-D MIPS images are created and assessed. IV contrast was administered without complication. All measurements were calculated based on NASCET criteria. A dose lowering technique was utilized adhering to the principles of ALARA. CT DOSE: 570.40 mGy.cm FINDINGS: Three-vessel morphology of the thoracic aortic arch. There is patency of the innominate and imaged subclavian arteries. The common and internal carotid arteries appear patent. There is no significant atherosclerotic vascular disease. The middle and anterior cerebral arteries are patent. The vertebral, basilar and posterior cerebral arteries appear normal. Cerebral venous sinuses are patent. There is no abnormal intracranial enhancement. Lung apices are clear. Unremarkable soft tissues. Polyploid mucosal thickening of the maxillary sinuses. No acute fracture. Degenerative changes of the spine. IMPRESSION:Unremarkable CTA of the head and neck. ACT 112: Negative or not required by law. The above report was generated using voice recognition software. It may contain grammatical, syntax or spelling errors. Electronically signed by: Valentin Padilla M.D. 01/28/2022 11:01 AM Medications Administered TNK Code Status & VTE Plan Code Status Full Code in the event of cardiac and respiratory arrest VTE Prophylaxis Plan VTE Prophylaxis will be ordered: Yes Supervising Physician Co-Signing Physician Notes Pt seen and examined by me, care coordinated w/ Noreen Almanzar PA-C, pls refer to her note above for further detail. 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 hx besides anxiety,who presents w/ stroke-like symptoms - Right arm and right leg weakness. In the ED telestroke was utilized, and patient received TNKase. Since then symptoms resolved. Currently patient is lying in bed, in no acute distress.He is alert oriented and able to provide history. He is moving extremities without difficulty.Cranial nerves intact.No weakness or sensory loss noted on physical exam.Speech fluent and appropriate. CT head and CTA head and neck unremarkable. Brain MRI ordered. Patient will be admitted to ICU for close monitoring. Neurology consulted.We will further follow recommendations. MD Omar
--- NOTE | 2022-01-28 13:39 | Magnetic Resonance Report ---
MR brain wo con CLINICAL HISTORY: R sided weakness post tnk TECHNIQUE: Multiplanar and multisequence MR images of the brain were obtained without intravenous con trast. Comparison: None available at the time of this dictation. FINDINGS: There is a punctate focus of restricted diffusion in the left posterior frontal lobe. There is minima l associated edema and no significant mass effect or midline shift. The white matter is unremarkable. The ventricular system is normal in appearance. No mass is seen. There is no mass effect or midline shift. No evidence of hemorrhage is seen. No extra axial fluid collections are seen. The corpus callo sum, pituitary gland, and cerebellar tonsils appear grossly unremarkable. Flow voids of the major intracranial arterial vessels are identified. The imaged portions of the para nasal sinuses, mastoid air cells, and orbits are unremarkable. IMPRESSION: Punctate infarct in the posterior left frontal lobe. No evidence of hemorrhagic transformation. ACT 112: Negative or not required by law. Electronically signed by: Santosh Bishop M.D. 01/28/2022 1:38 PM
[2022-01-28] MEDS ORDERED: LORazepam 1 MG TAB PO PRN (14:01)
[2022-01-28] MEDS ORDERED: LABETALOL HCL IV 5 MG/ML 20ML IV PRN (14:17)
--- NOTE | 2022-01-28 14:18 | Critical Care Consultation ---
Date of Consultation January 28, 2022 Assessment & Plan (1) Thrombolytic therapy administered within 2 hours of onset of symptoms: (2) Stroke-like symptoms: (3) Hypertension: Plan Impression: 41-year-old male with symptoms concerning for acute stroke with negative CT imaging status post TNKase administration. His MRI shows a punctate infarct in the left frontal lobe which is difficult to correlate with the patient's presenting symptoms. He is being observed in the ICU post TNKase administration. He is does have a history of alcohol abuse Recommendations: 1. Potential stroke: Continue stroke protocol. Keep blood pressure under control. Avoid hyperglycemia, hypoglycemia, hypoxemia, or fevers. Await formal neurology consultation. Again its unclear how to correlate the patient's symptoms with the radiographic findings. Await echocardiogram. Defer additional hypercoagulable work-up. Unclear if he would benefit from a outpatient Holter monitor or potential loop recorder. Hold on anticoagulation for now. Follow-up CT scan will be obtained in 24 hours. If no evidence of bleeding, the patient can be dismissed from the intensive care unit with additional work-up per neurology and primary admitting service. 2. Hypertension: We will keep blood pressures less than 175/110 given recent thrombolytic administration. 3. PT OT consultations will be obtained. The patient does not require speech therapy evaluation or swallow evaluation at this point time. 4. History of alcohol abuse: Continue to monitor. Continue thiamine and folate. Benzodiazepines as needed however I suspect the patient will be out of the ICU before alcohol withdrawal becomes an issue. Patient will be observed in the ICU 24 hours post TNKase administration. At that point time he is eligible to dismiss out of the ICU and critical care services will sign off. Thanks for the opportunity participating the care of this patient. Feel free to contact us with questions or concerns. History of Present Illness Attending Physician: Rusty Nelson MD History of Present Illness Asked by hospitalist to assist in evaluation management of this patient with focal arm numbness and tingling he received TNKase in the emergency room due to potential stroke and is admitted to the ICU postprocedure for observation of bleeding complications. History is obtained by review of the electronic medical record, discussion with the admitting hospitalist team, and discussion with the patient. Patient is a 41-year-old male who has a [id number] history of tobacco abuse and continues to smoke the bright of about a pack per day. He presented to the hospital today after experiencing some numbness in his right hand and inability to move his right leg. He had a CT of the head and CT angiogram demonstrating no evidence of large vessel obstruction and telestroke consultation was conducted with Melly who recommended TN K administration. His symptoms have resolved completely and his NIH score is currently 0. The patient has no prior history of stroke or strokelike symptoms. No history of atrial fibrillation or clotting disorders. No family history of strokes. No personal history of seizures, migraine headaches, or other neurological complaints. The patient has no history of hypertension and does not take any medications on a regular basis other than trazodone at night to sleep. Allergies Allergy/AdvReac Type Severity Reaction Status Date / Time No Known Allergies Allergy Unverified 01/28/22 11:29 Home Medications Medication Instructions Recorded Confirmed Type trazodone 50 mg tablet 50 mg PO HS 01/28/22 01/28/22 History Patient History Medical History (Updated 01/28/22 @ 14:13 by Nader Dos Santos MD) Alcohol use Chest wall pain Kidney stones Stroke-like symptoms Thoracic compression fracture Thrombolytic therapy administered within 2 hours of onset of symptoms Tobacco abuse Surgical History No pertinent past surgical history Social History Smoking Status: Never smoker Tobacco Type: Cigarettes Preferred Language: Kinyarwanda Feels Safe at Home: Yes Review of Systems Review of Systems: All systems reviewed & are unremarkable except as noted in Subjective Physical Exam Constitutional: WD/WN, vitals as above Neck: trachea midline, no thyromegaly Respiratory: normal respiratory effort, lungs clear to auscultation Cardiovascular: RRR, no murmur, no edema Gastrointestinal (Abdomen): normal bowel sounds, soft, nontender, no hepatosplenomegaly Musculoskeletal: Extremities: extremities normal to inspection Skin: no rashes, warm and dry Neurologic: Nonfocal exam Lymphatic: no cervical lymphadenopathy Results & Data Results & Data ([facility]) Vital Signs (Past 12 Hours) Vital Signs Temp Pulse Pulse Resp BP BP Pulse Ox 01/28/22 14:00 87 18 170/127 H 98 01/28/22 13:40 88 14 169/120 H 98 01/28/22 13:25 76 17 154/98 H 98 01/28/22 12:37 84 16 118/95 96 01/28/22 12:25 87 16 127/91 95 01/28/22 12:10 80 16 95 01/28/22 12:00 83 16 132/93 95 01/28/22 11:55 83 16 138/101 H 95 01/28/22 11:41 128/104 H 01/28/22 11:41 86 20 96 01/28/22 11:40 91 H 16 97 01/28/22 11:38 134/97 01/28/22 11:38 86 21 96 01/28/22 11:30 84 16 01/28/22 11:30 144/102 H 01/28/22 11:20 92 H 17 01/28/22 11:15 87 15 01/28/22 11:15 145/95 H 01/28/22 11:14 95 H 16 01/28/22 11:14 144/102 H 01/28/22 11:10 93 H 11 L 01/28/22 11:04 157/102 H 01/28/22 11:04 20 97 01/28/22 11:00 13 99 01/28/22 10:55 104 H 13 96 01/28/22 10:55 178/123 H 01/28/22 11:51 87 16 138/101 H 95 01/28/22 11:04 92 H 16 157/102 H 98 01/28/22 10:34 01/28/22 10:40 92 H 98 01/28/22 10:40 01/28/22 10:38 36.2 C L 97 H 20 145/87 H 96 O2 Del Method 01/28/22 14:00 Room Air 01/28/22 13:40 Room Air 01/28/22 13:25 Room Air 01/28/22 12:37 01/28/22 12:25 01/28/22 12:10 01/28/22 12:00 01/28/22 11:55 01/28/22 11:41 01/28/22 11:41 01/28/22 11:40 01/28/22 11:38 01/28/22 11:38 01/28/22 11:30 01/28/22 11:30 01/28/22 11:20 01/28/22 11:15 01/28/22 11:15 01/28/22 11:14 01/28/22 11:14 01/28/22 11:10 01/28/22 11:04 01/28/22 11:04 01/28/22 11:00 01/28/22 10:55 01/28/22 10:55 01/28/22 11:51 01/28/22 11:04 01/28/22 10:34 Room Air 01/28/22 10:40 Room Air 01/28/22 10:40 Room Air 01/28/22 10:38 Room Air Critical Care Results & Data Vital Signs (Past 12 Hours) Vital Signs Temp Pulse Pulse Resp BP BP Pulse Ox 01/28/22 14:00 87 18 170/127 H 98 01/28/22 13:40 88 14 169/120 H 98 01/28/22 13:25 76 17 154/98 H 98 01/28/22 12:37 84 16 118/95 96 01/28/22 12:25 87 16 127/91 95 01/28/22 12:10 80 16 95 01/28/22 12:00 83 16 132/93 95 01/28/22 11:55 83 16 138/101 H 95 01/28/22 11:41 128/104 H 01/28/22 11:41 86 20 96 01/28/22 11:40 91 H 16 97 01/28/22 11:38 134/97 01/28/22 11:38 86 21 96 01/28/22 11:30 84 16 01/28/22 11:30 144/102 H 01/28/22 11:20 92 H 17 01/28/22 11:15 87 15 01/28/22 11:15 145/95 H 01/28/22 11:14 95 H 16 01/28/22 11:14 144/102 H 01/28/22 11:10 93 H 11 L 01/28/22 11:04 157/102 H 01/28/22 11:04 20 97 01/28/22 11:00 13 99 01/28/22 10:55 104 H 13 96 01/28/22 10:55 178/123 H 01/28/22 11:51 87 16 138/101 H 95 01/28/22 11:04 92 H 16 157/102 H 98 01/28/22 10:34 01/28/22 10:40 92 H 98 01/28/22 10:40 01/28/22 10:38 36.2 C L 97 H 20 145/87 H 96 O2 Del Method 01/28/22 14:00 Room Air 01/28/22 13:40 Room Air 01/28/22 13:25 Room Air 01/28/22 12:37 01/28/22 12:25 01/28/22 12:10 01/28/22 12:00 01/28/22 11:55 01/28/22 11:41 01/28/22 11:41 01/28/22 11:40 01/28/22 11:38 01/28/22 11:38 01/28/22 11:30 01/28/22 11:30 01/28/22 11:20 01/28/22 11:15 01/28/22 11:15 01/28/22 11:14 01/28/22 11:14 01/28/22 11:10 01/28/22 11:04 01/28/22 11:04 01/28/22 11:00 01/28/22 10:55 01/28/22 10:55 01/28/22 11:51 01/28/22 11:04 01/28/22 10:34 Room Air 01/28/22 10:40 Room Air 01/28/22 10:40 Room Air 01/28/22 10:38 Room Air Lab & Micro Results (Past 24 Hours) RBC 4.92 M/uL (4.63-6.08) 01/28/22 WBC 5.33 K/ul (4.8-10.8) 01/28/22 Hgb 16.2 g/dl (14.0-18.0) 01/28/22 Hct 45.3 % (40.1-51.0) 01/28/22 MCV 92.1 fL (80.0-100.0) 01/28/22 MCH 32.9 pg (25.0-34.0) 01/28/22 MCHC 35.8 g/dL (32.0-36.0) 01/28/22 RDW Standard Deviation 43.0 fL (36.4-46.3) 01/28/22 RDW Coefficient of Variation 12.8 % (11.5-14.5) 01/28/22 Plt Count 220 K/uL (130-400) 01/28/22 MPV 9.1 fL (9.4-12.4) L 01/28/22 Na 137 mmol/L (136-145) 01/28/22 K 4.3 mmol/L (3.5-5.1) 01/28/22 Cl 104 mmol/L (98-107) 01/28/22 CO2 26 mmol/L (21-32) 01/28/22 Anion Gap 7 (3-11) 01/28/22 BUN 14 mg/dl (6-23) 01/28/22 Creatinine 0.95 mg/dl (0.6-1.4) 01/28/22 Estimated GFR ( Amer) 114.0 ml/min 01/28/22 Estimated GFR (Non-Af Amer) 98.3 ml/min 01/28/22 BUN/Creatinine Ratio 14.7 (10-20) 01/28/22 Glu 91 mg/dl (70-99(Fasting)) 01/28/22 Ca 8.9 mg/dl (8.5-10.1) 01/28/22 Total Bilirubin 0.8 mg/dl (0.2-1.0) 01/28/22 AST 23 U/L (13-39) 01/28/22 ALT 29 U/L (7-52) 01/28/22 Alkaline Phosphatase 54 U/L (34-104) 01/28/22 TP 6.6 gm/dl (6.0-8.3) 01/28/22 Albumin 4.1 gm/dl (3.4-5.0) 01/28/22 Globulin 2.5 gm/dl (2.5-4.0) 01/28/22 Albumin/Globulin Ratio 1.6 (0.9-2) 01/28/22 Mg 1.8 mg/dl (1.7-2.4) 01/28/22 10:54 Calcium Level 8.9 mg/dl (8.5-10.1) 01/28/22 10:54 Prothromb Time International Ratio 1.1 (0.9-1.1) 01/28/22 10:5 4 Diagnostic Findings (Past 24 Hours) Head CT 01/28/22 10:[address] DOSE: 537.48 mGy.cm HISTORY: Weakness. Numbness within the right extremities. TECHNIQUE: Multiaxial CT images of the head were performed without the use of intravenous contrast. Automated exposure control was utilized for this study. A dose lowering technique was utilized adhering to the principles of ALARA. Comparison: None. Findings: The paranasal sinuses and mastoid air cells are clear. The calvarium and skull base are intact. The ventricles and sulci are within normal limits. There is no mass, hematoma, midline shift, or acute infarct. Impression: No acute intracranial abnormality. ACT 112: Negative or not required by law. Electronically signed by: Mart Flowers M.D. 01/28/2022 10:57 AM Head CTA 01/28/22 10:46 CT angio neck with con, CT angio head w con CLINICAL HISTORY: 41 years-old Male with slurred speech, amb dysfunction. Acute strokelike symptoms COMPARISON STUDY: Head CT of same day TECHNIQUE: Following the IV administration of 120 mL of Optiray, CT angiogram of the head and neck was performed from the aortic arch to the skull apex. Images are reviewed in the axial, sagittal, and coronal planes. 3-D MIPS images are created and assessed. IV contrast was administered without complication. All measurements were calculated based on NASCET criteria. A dose lowering technique was utilized adhering to the principles of ALARA. CT DOSE: 570.40 mGy.cm FINDINGS: Three-vessel morphology of the thoracic aortic arch. There is patency of the innominate and imaged subclavian arteries. The common and internal carotid arteries appear patent. There is no significant atherosclerotic vascular disease. The middle and anterior cerebral arteries are patent. The vertebral, basilar and posterior cerebral arteries appear normal. Cerebral venous sinuses are patent. There is no abnormal intracranial enhancement. Lung apices are clear. Unremarkable soft tissues. Polyploid mucosal thickening of the maxillary sinuses. No acute fracture. Degenerative changes of the spine. IMPRESSION:Unremarkable CTA of the head and neck. ACT 112: Negative or not required by law. The above report was generated using voice recognition software. It may contain grammatical, syntax or spelling errors. Electronically signed by: Valentin Padilla M.D. 01/28/2022 11:01 AM Neck CTA 10/12/22 10:46 CT angio neck with con, CT angio head w con CLINICAL HISTORY: 41 years-old Male with slurred speech, amb dysfunction. Acute strokelike symptoms COMPARISON STUDY: Head CT of same day TECHNIQUE: Following the IV administration of 120 mL of Optiray, CT angiogram of the head and neck was performed from the aortic arch to the skull apex. Images are reviewed in the axial, sagittal, and coronal planes. 3-D MIPS images are created and assessed. IV contrast was administered without complication. All measurements were calculated based on NASCET criteria. A dose lowering technique was utilized adhering to the principles of ALARA. CT DOSE: 570.40 mGy.cm FINDINGS: Three-vessel morphology of the thoracic aortic arch. There is patency of the innominate and imaged subclavian arteries. The common and internal carotid arteries appear patent. There is no significant atherosclerotic vascular disease. The middle and anterior cerebral arteries are patent. The vertebral, basilar and posterior cerebral arteries appear normal. Cerebral venous sinuses are patent. There is no abnormal intracranial enhancement. Lung apices are clear. Unremarkable soft tissues. Polyploid mucosal thickening of the maxillary sinuses. No acute fracture. Degenerative changes of the spine. IMPRESSION:Unremarkable CTA of the head and neck. ACT 112: Negative or not required by law. The above report was generated using voice recognition software. It may contain grammatical, syntax or spelling errors. Electronically signed by: Valentin Padilla M.D. 01/28/2022 11:01 AM Brain MRI 01/28/22 12:03 MR brain wo con CLINICAL HISTORY: R sided weakness post tnk TECHNIQUE: Multiplanar and multisequence MR images of the brain were obtained without intravenous contrast. Comparison: None available at the time of this dictation. FINDINGS: There is a punctate focus of restricted diffusion in the left posterior frontal lobe. There is minimal associated edema and no significant mass effect or midline shift. The white matter is unremarkable. The ventricular system is normal in appearance. No mass is seen. There is no mass effect or midline shift. No evidence of hemorrhage is seen. No extra axial fluid collections are seen. The corpus callosum, pituitary gland, and cerebellar tonsils appear grossly unremarkable. Flow voids of the major intracranial arterial vessels are identified. The imaged portions of the paranasal sinuses, mastoid air cells, and orbits are unremarkable. IMPRESSION: Punctate infarct in the posterior left frontal lobe. No evidence of hemorrhagic transformation. ACT 112: Negative or not required by law. Electronically signed by: Santosh Bishop M.D. 01/28/2022 1:38 PM RT Ventilator Mngmt (Last Documented) Ventilator Ordered Settings Respiratory Rate 18 01/28/22 14:00 Ventilator - PT Measurements Respiratory Rate 18 Coding Level of Care Code 50704 Inpt Consult Level 4 Diagnoses Thrombolytic therapy administered within 2 hours of onset of symptoms Stroke-like symptoms R29.90 Hypertension I10
--- NOTE | 2022-01-28 14:41 | Electrocardiogram Report ---
Test Reason : Blood Pressure : / mmHG Vent. Rate : 104 BPM Atrial Rate : 104 BPM P-R Int : 166 ms QRS Dur : 088 ms QT Int : 348 ms P-R-T Axes : 029 008 015 degrees QTc Int : 457 ms Sinus tachycardia Otherwise normal ECG When compared with ECG of 29-NOV-2017 13:58, No significant change was found Confirmed by James Sherman ([id number]) on 01/28/2022 2:41:14 PM Referred By: REFERRED SELF Confirmed By:James Sherman
[2022-01-28 14:58] LABS: Chol HDL Ratio 3.2 (0-5)
[2022-01-28] MEDS ORDERED: THIAMINE HCL 100 MG in SYRINGE 9 ML IV SCH (15:00)
[2022-01-28] MEDS ORDERED: FOLIC ACID 1 MG in SYRINGE 9.8 ML IV SCH (15:00)
[2022-01-28] MEDS: ATORVASTATIN 40 MG TAB PO SCH (15:09)
[2022-01-28 15:16] LABS: Estimated Average Glucose 97 mg/dl
[2022-01-28] MEDS: NICOTINE 14 MG/24 HR PATCH TD SCH (18:30)
--- NOTE | 2022-01-28 18:59 | Neurology Consultation ---
Date of Consultation January 28, 2022 Assessment & Plan (1) Acute cerebrovascular accident (CVA): Impression: The patient had sudden onset right upper and lower extremity weakness at 9 AM today, and received intravenous thrombolytic treatment around 11:30 AM today. He has recovered clinically. Brain MRI showed left frontal small ischemic stroke. The patient has stroke risk factors including tobacco use, and hyperlipidemia. He has been investigated for potential obstructive sleep apnea with pending polysomnography. He has been symptom-free since admission. Plan: Transthoracic echocardiogram. Telemetry monitoring. Aspirin 81 mg daily and Plavix 75 mg daily for 3 weeks ( after repeat HCT t omorrow). After the third week, Plavix will be stopped and the patient will stay on aspirin 81 mg daily. Lipitor 40 mg at bedtime. Goal LDL level is lower than 70. Cessation of tobacco and alcohol use is strongly recommended. Daily exercise, sleep hygiene, work-up for potential obstructive sleep apnea, and modification of diet is explained and recommend the patient. We should keep systolic blood pressure below 180 for next 24 hours based on protocol. Blood pressure and neurological monitoring as suggested by protocol. Repeat head CT tomorrow at noon. If head CT does not show hemorrhagic conversion, then the patient can be started on aspirin and Plavix. Hypercoagulable state work-up. The patient can be discharged home in next 24 hours after completion of recommended work-up, if he stays symptom-free. Follow-up with neurology clinic in a month. (2) Hyperlipidemia: Impression: The patient has established diagnosis of hyperlipidemia but has not been on any lipid-lowering treatment. Plan: As seen above. (3) Tobacco abuse: (4) Alcohol use: Plan Thank you for the consultation. History of Present Illness Reason for Consultation: CVA Requesting Physician: Rusty Nelson MD Attending Physician: Rusty Nelson MD History of Present Illness The patient is a 41-year-old right-handed gentleman, who noticed sudden onset of right arm and leg heaviness around 9 AM today. Even though initially reported some speech disturbance, but the patient does not remember having such symptoms. In emergency department, after initial evaluation, the patient received thrombolytic treatment, with total resolution of neurological deficit. His CT angiography of the head and neck did not show any hemodynamically significant stenosis or obvious atherosclerosis. He is currently symptom-free. EKG showed sinus rhythm. Lipid panel showed elevated serum lipids. Following brain MRI showed small, left frontal cortex ischemic stroke. The patient denies having stroke or strokelike symptoms in the past. He has no family history of early age strokes. He also denies having palpitations, blood clots, using street drugs, recent head and neck trauma, chiropractic neck maneuvers, or using new medications. He has been on trazodone on and off, for sleep difficulty. He was recently evaluated by his primary care physician for possible sleep apnea and testing is pending. He is a longtime smoker, and currently smokes cigarettes 1 pack a day. He drinks bourbon almost daily for a long time. Since admission, the patient has been symptom-free. I have reviewed the patient's chart including imaging studies and visualized them personally. I have discussed the case with the patient and answer his questions in detail. Allergies Allergy/AdvReac Type Severity Reaction Status Date / Time No Known Allergies Allergy Unverified 01/28/22 11:29 Home Medications Medication Instructions Recorded Confirmed Type trazodone 50 mg tablet 50 mg PO HS 01/28/22 01/28/22 History Patient History Medical History Alcohol use Chest wall pain Kidney stones Stroke-like symptoms Thoracic compression fracture Thrombolytic therapy administered within 2 hours of onset of symptoms Tobacco abuse Surgical History No pertinent past surgical history Social History Smoking Status: Current every day smoker Tobacco Type: Cigarettes Do You Dip or Chew Tobacco: No; Hx Alcohol Use: Yes Alcohol type: hard liquor Hx Substance Use: No Preferred Language: Cameroonian Communication Ability: Effective Pad Cutter Required: No Beliefs That Will Affect Care: None Current Living Situation: Family Other Information That Helps Us Care for You: No Feels Safe at Home: Yes Safety Concerns: Feels Safe At This Time Assistive Devices: None Review of Systems Review of Systems: All systems reviewed & are unremarkable except as noted in HPI & below Physical Exam Physical Exam: General Examination: Constitutional: Well developed person in no acute distress. HENT: Normal exam with inspection. CV: Hearth rhtyhm is regular. Neck: Supple, no carotid bruits. Lungs: Non-labored and comfortable breathing. Abdomen: Soft, non-tender, non-distended. Skin: No rash or ecchymosis. Extremities: No edema or cyanosis NEUROLOGICAL EXAMINATION: Mental Status: Alert and oriented to place, person and time. Cranial Nerves: II-XII are intact. No nystagmus. Funduscopy: Normal looking optic discs. Motor: 5/5 in all extremities without asymmetry. Tone: Normal without spasticity or rigidity. Sensory: Intact to all sensory modalities. Coordination: No dysmetria with FTN testing. DTRs: 2+ all. No Babinski. Speech: Fluent. Comprehension is intact. Gait: Normal. No ataxia or abnormal walking pattern. Musculoskeletal: Normal muscle bulk, no atrophy. Results & Data ([facility]) Vital Signs (Past 12 Hours) Vital Signs Temp Pulse Pulse Resp BP BP Pulse Ox 01/28/22 18:40 84 19 127/90 97 01/28/22 18:00 84 14 116/76 97 01/28/22 17:30 87 18 128/88 98 01/28/22 17:00 88 15 137/88 97 01/28/22 16:30 83 17 144/84 H 98 01/28/22 16:00 90 13 115/93 98 01/28/22 15:30 85 14 129/87 97 01/28/22 15:00 86 15 122/94 96 01/28/22 13:30 81 01/28/22 14:30 98 H 20 131/95 97 01/28/22 14:04 83 18 170/127 H 95 01/28/22 14:00 87 18 170/127 H 98 01/28/22 13:40 88 14 169/120 H 98 01/28/22 13:25 76 17 154/98 H 98 01/28/22 12:37 84 16 118/95 96 01/28/22 12:25 87 16 127/91 95 01/28/22 12:10 80 16 95 01/28/22 12:00 83 16 132/93 95 01/28/22 11:55 83 16 138/101 H 95 01/28/22 11:41 128/104 H 01/28/22 11:41 86 20 96 01/28/22 11:40 91 H 16 97 01/28/22 11:38 134/97 01/28/22 11:38 86 21 96 01/28/22 11:30 84 16 01/28/22 11:30 144/102 H 01/28/22 11:20 92 H 17 01/28/22 11:15 87 15 01/28/22 11:15 145/95 H 01/28/22 11:14 95 H 16 01/28/22 11:14 144/102 H 01/28/22 11:10 93 H 11 L 01/28/22 11:04 157/102 H 01/28/22 11:04 20 97 01/28/22 11:00 13 99 01/28/22 10:55 104 H 13 96 01/28/22 10:55 178/123 H 01/28/22 11:51 87 16 138/101 H 95 01/28/22 11:04 92 H 16 157/102 H 98 01/28/22 10:34 01/28/22 10:40 92 H 98 01/28/22 10:40 01/28/22 10:38 36.2 C L 97 H 20 145/87 H 96 O2 Del Method 01/28/22 18:40 Room Air 01/28/22 18:00 Room Air 01/28/22 17:30 Room Air 01/28/22 17:00 Room Air 01/28/22 16:30 Room Air 01/28/22 16:00 Room Air 01/28/22 15:30 Room Air 01/28/22 15:00 Room Air 01/28/22 13:30 01/28/22 14:30 Room Air 01/28/22 14:04 Room Air 01/28/22 14:00 Room Air 01/28/22 13:40 Room Air 01/28/22 13:25 Room Air 01/28/22 12:37 01/28/22 12:25 01/28/22 12:10 01/28/22 12:00 01/28/22 11:55 01/28/22 11:41 01/28/22 11:41 01/28/22 11:40 01/28/22 11:38 01/28/22 11:38 01/28/22 11:30 01/28/22 11:30 01/28/22 11:20 01/28/22 11:15 01/28/22 11:15 01/28/22 11:14 01/28/22 11:14 01/28/22 11:10 01/28/22 11:04 01/28/22 11:04 01/28/22 11:00 01/28/22 10:55 01/28/22 10:55 01/28/22 11:51 01/28/22 11:04 01/28/22 10:34 Room Air 01/28/22 10:40 Room Air 01/28/22 10:40 Room Air 01/28/22 10:38 Room Air Laboratory Results Head CT 01/28/22 10:[address] DOSE: 537.48 mGy.cm HISTORY: Weakness. Numbness within the right extremities. TECHNIQUE: Multiaxial CT images of the head were performed without the use of intravenous contrast. Automated exposure control was utilized for this study. A dose lowering technique was utilized adhering to the principles of ALARA. Comparison: None. Findings: The paranasal sinuses and mastoid air cells are clear. The calvarium and skull base are intact. The ventricles and sulci are within normal limits. There is no mass, hematoma, midline shift, or acute infarct. Impression: No acute intracranial abnormality. ACT 112: Negative or not required by law. Electronically signed by: Mart Flowers M.D. 01/28/2022 10:57 AM Head CTA 01/28/22 10:46 CT angio neck with con, CT angio head w con CLINICAL HISTORY: 41 years-old Male with slurred speech, amb dysfunction. Acute strokelike symptoms COMPARISON STUDY: Head CT of same day TECHNIQUE: Following the IV administration of 120 mL of Optiray, CT angiogram of the head and neck was performed from the aortic arch to the skull apex. Images are reviewed in the axial, sagittal, and coronal planes. 3-D MIPS images are created and assessed. IV contrast was administered without complication. All measurements were calculated based on NASCET criteria. A dose lowering technique was utilized adhering to the principles of ALARA. CT DOSE: 570.40 mGy.cm FINDINGS: Three-vessel morphology of the thoracic aortic arch. There is patency of the innominate and imaged subclavian arteries. The common and internal carotid arteries appear patent. There is no significant atherosclerotic vascular disease. The middle and anterior cerebral arteries are patent. The vertebral, basilar and posterior cerebral arteries appear normal. Cerebral venous sinuses are patent. There is no abnormal intracranial enhancement. Lung apices are clear. Unremarkable soft tissues. Polyploid mucosal thickening of the maxillary sinuses. No acute fracture. Degenerative changes of the spine. IMPRESSION:Unremarkable CTA of the head and neck. ACT 112: Negative or not required by law. The above report was generated using voice recognition software. It may contain grammatical, syntax or spelling errors. Electronically signed by: Valentin Padilla M.D. 01/28/2022 11:01 AM Neck CTA 01/28/22 10:46 CT angio neck with con, CT angio head w con CLINICAL HISTORY: 41 years-old Male with slurred speech, amb dysfunction. Acute strokelike symptoms COMPARISON STUDY: Head CT of same day TECHNIQUE: Following the IV administration of 120 mL of Optiray, CT angiogram of the head and neck was performed from the aortic arch to the skull apex. Images are reviewed in the axial, sagittal, and coronal planes. 3-D MIPS images are created and assessed. IV contrast was administered without complication. All measurements were calculated based on NASCET criteria. A dose lowering technique was utilized adhering to the principles of ALARA. CT DOSE: 570.40 mGy.cm FINDINGS: Three-vessel morphology of the thoracic aortic arch. There is patency of the innominate and imaged subclavian arteries. The common and internal carotid arteries appear patent. There is no significant atherosclerotic vascular disease. The middle and anterior cerebral arteries are patent. The vertebral, basilar and posterior cerebral arteries appear normal. Cerebral venous sinuses are patent. There is no abnormal intracranial enhancement. Lung apices are clear. Unremarkable soft tissues. Polyploid mucosal thickening of the maxillary sinuses. No acute fracture. Degenerative changes of the spine. IMPRESSION:Unremarkable CTA of the head and neck. ACT 112: Negative or not required by law. The above report was generated using voice recognition software. It may contain grammatical, syntax or spelling errors. Electronically signed by: Valentin Padilla M.D. 01/28/2022 11:01 AM Brain MRI 01/28/22 12:03 MR brain wo con CLINICAL HISTORY: R sided weakness post tnk TECHNIQUE: Multiplanar and multisequence MR images of the brain were obtained without intravenous contrast. Comparison: None available at the time of this dictation. FINDINGS: There is a punctate focus of restricted diffusion in the left posterior frontal lobe. There is minimal associated edema and no significant mass effect or midline shift. The white matter is unremarkable. The ventricular system is normal in appearance. No mass is seen. There is no mass effect or midline shift. No evidence of hemorrhage is seen. No extra axial fluid collections are seen. The corpus callosum, pituitary gland, and cerebellar tonsils appear grossly unremarkable. Flow voids of the major intracranial arterial vessels are identified. The imaged portions of the paranasal sinuses, mastoid air cells, and orbits are unremarkable. IMPRESSION: Punctate infarct in the posterior left frontal lobe. No evidence of hemorrhagic transformation. ACT 112: Negative or not required by law. Electronically signed by: Santosh Bishop M.D. 01/28/2022 1:38 PM Diagnostic Findings Laboratory Results - last 24 hr 01/28/22 01/28/22 01/28/22 10:54 10:54 10:54 WBC 5.33 RBC 4.92 Hgb 16.2 POC Hgb Hct 45.3 POC Hct MCV 92.1 MCH 32.9 MCHC 35.8 RDW Std Deviation 43.0 RDW Coeff of Sergio 12.8 Plt Count 220 MPV 9.1 L PT 11.3 INR 1.1 APTT 28.9 PTT Ratio 1.1 POC Sodium Sodium 137 POC Potassium Potassium 4.3 POC Chloride Chloride 104 Carbon Dioxide 26 POC Total CO2 Anion Gap 7 POC Anion Gap POC BUN BUN 14 Creatinine 0.95 POC Creatinine Est Cr Clr Drug Dosing 122.3 Est GFR ( Amer) 114.0 Est GFR (Non-Af Amer) 98.3 BUN/Creatinine Ratio 14.7 Glucose 91 POC Glucose (other) Estimat Average Glucose Hemoglobin A1c Calcium 8.9 POC Ioniz Calcium Tulio Magnesium 1.8 Total Bilirubin 0.8 AST 23 ALT 29 Alkaline Phosphatase 54 Total Protein 6.6 Albumin 4.1 Globulin 2.5 Albumin/Globulin Ratio 1.6 Triglycerides Cholesterol LDL Cholesterol, Calc VLDL Cholesterol, Calc HDL Cholesterol Cholesterol/HDL Ratio Nasal Screen MRSA (PCR) SARS-CoV-2, RNA, NAAT 01/28/22 01/28/22 01/28/22 11:02 11:53 13:50 WBC RBC Hgb POC Hgb 16.7 Hct POC Hct 49 MCV MCH MCHC RDW Std Deviation RDW Coeff of Sergio Plt Count MPV PT INR APTT PTT Ratio POC Sodium 138 Sodium POC Potassium 4.3 Potassium POC Chloride 101 Chloride Carbon Dioxide POC Total CO2 24 Anion Gap POC Anion Gap 18.0 POC BUN 14 BUN Creatinine POC Creatinine 1.0 Est Cr Clr Drug Dosing Est GFR ( Amer) Est GFR (Non-Af Amer) BUN/Creatinine Ratio Glucose POC Glucose (other) 96 Estimat Average Glucose Hemoglobin A1c Calcium POC Ioniz Calcium Tulio 1.12 Magnesium Total Bilirubin AST ALT Alkaline Phosphatase Total Protein Albumin Globulin Albumin/Globulin Ratio Triglycerides Cholesterol LDL Cholesterol, Calc VLDL Cholesterol, Calc HDL Cholesterol Cholesterol/HDL Ratio Nasal Screen MRSA (PCR) Negative SARS-CoV-2, RNA, NAAT NEGATIVE 01/28/22 01/28/22 14:11 14:11 WBC RBC Hgb POC Hgb Hct POC Hct MCV MCH MCHC RDW Std Deviation RDW Coeff of Sergio Plt Count MPV PT INR APTT PTT Ratio POC Sodium Sodium POC Potassium Potassium POC Chloride Chloride Carbon Dioxide POC Total CO2 Anion Gap POC Anion Gap POC BUN BUN Creatinine POC Creatinine Est Cr Clr Drug Dosing Est GFR ( Amer) Est GFR (Non-Af Amer) BUN/Creatinine Ratio Glucose POC Glucose (other) Estimat Average Glucose 97 Hemoglobin A1c 5.0 Calcium POC Ioniz Calcium Tulio Magnesium Total Bilirubin AST ALT Alkaline Phosphatase Total Protein Albumin Globulin Albumin/Globulin Ratio Triglycerides 38 Cholesterol 244 H LDL Cholesterol, Calc 160 VLDL Cholesterol, Calc 8 HDL Cholesterol 76 Cholesterol/HDL Ratio 3.2 Nasal Screen MRSA (PCR) SARS-CoV-2, RNA, NAAT
[2022-01-28] MEDS ORDERED: traZODone HCL 50 MG TAB PO SCH (21:00)
[2022-01-28] MEDS ORDERED: ALPRAZolam 0.5 MG TABLET PO STA (21:05)
[2022-01-29 07:49] LABS: Amphetamines+Metham, Urine Neg (Neg); Barbiturates, Urine Neg (Neg); Benzodiazepine, Urine Neg (Neg); Cocaine, Urine Neg (Neg); MDMA (Ecstacy), Urine Neg (Neg); Methadone, Urine Neg (Neg); Opiate, Urine Neg (Neg); Phencyclidine, Urine Neg (Neg)
[2022-01-29] MEDS: NICOTINE 14 MG/24 HR PATCH TD SCH (07:55)
[2022-01-29] MEDS: ATORVASTATIN 40 MG TAB PO SCH (07:55)
[2022-01-29] MEDS ORDERED: PHARMACIST DISCHARGE MED REC CONSULT PRN (09:22)
--- NOTE | 2022-01-29 11:04 | XRay Report ---
XR chest 1V portable CLINICAL HISTORY: stroke like symptoms COMPARISON STUDY: Chest radiograph April 06, 2020. FINDINGS: Lung volumes are normal. Lungs are clear. There is no pneumothorax or pleural effusion. Car diac size is normal. Mediastinal contours are normal. There is no evidence for pulmonary edema. IMPRESSION: No acute cardiopulmonary findings. ACT 112: Negative or not required by law. Electronically signed by: Clark Boyd M.D. 01/29/2022 11:02 AM
--- NOTE | 2022-01-29 11:27 | Critical Care Progress Note ---
Date of Service January 29, 2022 Assessment & Plan (1) Admitted to intensive care unit: Plan: Reason Critically Ill: 41 year old Male who drove himself to the ED after he started experiencing numbness and loss of fine motor skills in his right hand which progressed to feeling like he could not move his right leg. Now ~24 hr s/p TNKase for stroke. Following TNKase had quick resolution of symptoms and has been asymptomatic since. Neuro - [facility] ICU: NEGATIVE Sedation: none Analgesia: none Small L frontal lobe ischemic stroke -initial CT imaging negative for acute stroke. Subsequent brain MRI showed stroke. No clear etiology at this time but likely multifactorial. Chronic smoker and alcohol abuser. Some question of previous elevated LDL. -TNKase administered ~1130 on 01/29, now almost 24 hours s/p thrombolytic therapy -A1c 5. LDL 160. Cholesterol 244. -Echo normal -continues to be asymptomatic, will repeat CT brain/head later this morning to r/o bleed. -Neurology following. If CT neg can start DAPT with asx/plavix. Plan to d/c plavix after 3 weeks and cont. with asx. F/u outpt neuro. -cont statin -discussed risk factor modification including smoking/alcohol cessation, diet/exercise modification -dysphagia screen neg, advanced diet. PT/OT ordered. Alcohol abuse, chronic -does not appear to be experiencing withdrawal at this time, however, ativan available prn Cardiac - No acute issues Echo normal BP goal <175/110 Respiratory - No acute issues. Saturating well. GI - HH diet RENAL/LYTES - No significant electrolyte derangement Replace lytes as needed. - No concerns at this time ENDO - No concerns at this time HEME - Stable H&H ID - No concerns for infection at this point LINES/IV ACCESS - PIVs intact. DVT PROPHYLAXIS - SCDs Pending negative CT, patient will be acceptable for downgrade out of the ICU. Thank you for allowing us to be part of this patient's care.Please refer to my attending's documentation for any further recommendations. (2) Hyperlipidemia: (3) Acute cerebrovascular accident (CVA): (4) Acute right-sided weakness: (5) Tobacco use: (6) Alcohol use: (7) Thrombolytic therapy administered within 2 hours of onset of symptoms: (8) Stroke-like symptoms: Admission and Anticipated Discharge Date Admission Date: January 28, 2022 Supervising Physician Co-Signing Physician Notes Patient seen and examined. EMR reviewed. Discussed with family practice resident and agree with assessment and plan as noted. Patient discussed on multidisciplinary rounds with bedside critical care nurse and multidisciplinary team. Patient has an NIH score of 0. He appears to have no significant sequelae. He is following up with a noncontrast CT scan around noon to evaluate for evidence of bleeding associated with TNKase administration. If that is negative, the patient can be dispositioned out of the intensive care unit. Ultimate disposition will be deferred to the primary care service. Continue statin. We will start antiplatelet agents after CT scan is completed. Smoking cessation recommended. Critical care services will sign off at this point in time. Feel free to contact us if we can be of additional assistance Subjective Seen at bedside this morning. No overnight events. TNKase yesterday ~1130 with resolution of acute neurologic deficits. Continues to be at his baseline. Denies chest pain, sob, abd pain, N/V, headache, dizziness, tinnitus, vision changes, extremity numbness tingling weakness. Review of Systems Review of Systems: All systems reviewed & are unremarkable except as noted in HPI & below Physical Exam Physical Exam: Constitutional: in no acute distress, pleasant and normal affect. Vitals as above. HEENT: No scleral injection or discharge. Moist mucous membranes.Clear oropharynx. Neck: Supple without lymphadenopathy or thyromegaly. Trachea midline. Lungs: Clear to auscultation bilaterally with good effort. Cardiac: Regular rate and rhythm. No murmurs. No extremity edema. Abdomen: Bowel sounds present. Soft, nontender, and nondistended. No hepatosplenomegaly. MSK: No cyanosis or clubbing. Extremities motor strength 5/5. Skin: No rashes, warm, dry. Neurologic: No focal deficits. Grossly intact cranial nerves. PERRL. Results & Data Results & Data ([facility]) Vital Signs (Past 12 Hours) Vital Signs Temp Pulse Pulse Resp BP Pulse Ox O2 Del Method 01/29/22 10:55 36.7 C 87 16 103/82 92 Room Air 01/29/22 09:55 36.8 C 74 16 114/66 95 Room Air 01/29/22 08:55 36.8 C 76 16 115/72 92 Room Air 01/29/22 07:55 36.8 C 84 16 119/82 94 Room Air 01/29/22 06:55 36.8 C 75 16 107/81 93 Room Air 01/29/22 06:00 36.6 C 79 14 106/85 94 Room Air 01/29/22 05:00 36.8 C 75 11 L 121/89 93 Room Air 01/29/22 04:00 36.7 C 73 14 115/81 96 Room Air 01/29/22 03:00 36.7 C 77 10 L 117/79 91 Room Air 01/29/22 02:00 36.8 C 75 11 L 108/84 91 Room Air 01/29/22 01:00 36.8 C 78 12 120/78 92 Room Air 01/29/22 00:00 78 01/29/22 00:00 36.8 C 75 10 L 119/75 93 Room Air Laboratory Results 01/29/22 01/29/22 01/29/22 Range/Units 11:18 11:18 06:50 WBC Pending RBC Pending Hgb Pending Hct Pending MCV Pending MCH Pending MCHC Pending Plt Count Pending Sodium Pending (136-145) mmol/L Potassium Pending (3.5-5.1) mmol/L Chloride Pending (98-107) mmol/L Carbon Dioxide Pending (21-32) mmol/L Anion Gap Pending (3-11) BUN Pending (6-23) mg/dl Creatinine Pending (0.6-1.4) mg/dl Est Cr Clr Drug Dosing Pending ml/min Est GFR ( Amer) Pending ml/min Est GFR (Non-Af Amer) Pending ml/min BUN/Creatinine Ratio Pending (10-20) Glucose Pending (70-99(Fasting)) mg/dl Estimat Average Glucose mg/dl Hemoglobin A1c (4.5-5.6) % Calcium Pending (8.5-10.1) mg/dl Magnesium Pending (1.7-2.4) mg/dl Total Bilirubin (0.2-1.0) mg/dl AST (13-39) U/L ALT (7-52) U/L Alkaline Phosphatase (34-104) U/L Total Protein (6.0-8.3) gm/dl Albumin (3.4-5.0) gm/dl Globulin (2.5-4.0) gm/dl Albumin/Globulin Ratio (0.9-2) Triglycerides (0-150) mg/dl Cholesterol (0-200) mg/dl LDL Cholesterol, Calc mg/dl VLDL Cholesterol, Calc (0-30) mg/dl HDL Cholesterol mg/dl Cholesterol/HDL Ratio (0-5) Nasal Screen MRSA (PCR) (Negative) Urine Opiates Screen Neg (Neg) Ur Methadone, Qual Neg (Neg) Urine Barbiturates Neg (Neg) Ur Phencyclidine (PCP) Neg (Neg) U Amphetamin/Meth Scrn Neg (Neg) MDMA (Ecstasy) Screen Neg (Neg) U Benzodiazepines Scrn Neg (Neg) Ur Cocaine Metabolite Neg (Neg) U Marijuana (THC) Screen Neg (Neg) SARS-CoV-2, RNA, NAAT (NEGATIVE) 01/28/22 01/28/22 01/28/22 Range/Units 14:11 14:11 13:50 WBC RBC Hgb Hct MCV MCH MCHC Plt Count Sodium (136-145) mmol/L Potassium (3.5-5.1) mmol/L Chloride (98-107) mmol/L Carbon Dioxide (21-32) mmol/L Anion Gap (3-11) BUN (6-23) mg/dl Creatinine (0.6-1.4) mg/dl Est Cr Clr Drug Dosing ml/min Est GFR ( Amer) ml/min Est GFR (Non-Af Amer) ml/min BUN/Creatinine Ratio (10-20) Glucose (70-99(Fasting)) mg/dl Estimat Average Glucose 97 mg/dl Hemoglobin A1c 5.0 (4.5-5.6) % Calcium (8.5-10.1) mg/dl Magnesium (1.7-2.4) mg/dl Total Bilirubin (0.2-1.0) mg/dl AST (13-39) U/L ALT (7-52) U/L Alkaline Phosphatase (34-104) U/L Total Protein (6.0-8.3) gm/dl Albumin (3.4-5.0) gm/dl Globulin (2.5-4.0) gm/dl Albumin/Globulin Ratio (0.9-2) Triglycerides 38 (0-150) mg/dl Cholesterol 244 H (0-200) mg/dl LDL Cholesterol, Calc 160 mg/dl VLDL Cholesterol, Calc 8 (0-30) mg/dl HDL Cholesterol 76 mg/dl Cholesterol/HDL Ratio 3.2 (0-5) Nasal Screen MRSA (PCR) Negative (Negative) Urine Opiates Screen (Neg) Ur Methadone, Qual (Neg) Urine Barbiturates (Neg) Ur Phencyclidine (PCP) (Neg) U Amphetamin/Meth Scrn (Neg) MDMA (Ecstasy) Screen (Neg) U Benzodiazepines Scrn (Neg) Ur Cocaine Metabolite (Neg) U Marijuana (THC) Screen (Neg) SARS-CoV-2, RNA, NAAT (NEGATIVE) 01/28/22 01/28/22 Range/Units 11:53 10:54 WBC RBC Hgb Hct MCV MCH MCHC Plt Count Sodium 137 (136-145) mmol/L Potassium 4.3 (3.5-5.1) mmol/L Chloride 104 (98-107) mmol/L Carbon Dioxide 26 (21-32) mmol/L Anion Gap 7 (3-11) BUN 14 (6-23) mg/dl Creatinine 0.95 (0.6-1.4) mg/dl Est Cr Clr Drug Dosing 122.3 ml/min Est GFR ( Amer) 114.0 ml/min Est GFR (Non-Af Amer) 98.3 ml/min BUN/Creatinine Ratio 14.7 (10-20) Glucose 91 (70-99(Fasting)) mg/dl Estimat Average Glucose mg/dl Hemoglobin A1c (4.5-5.6) % Calcium 8.9 (8.5-10.1) mg/dl Magnesium 1.8 (1.7-2.4) mg/dl Total Bilirubin 0.8 (0.2-1.0) mg/dl AST 23 (13-39) U/L ALT 29 (7-52) U/L Alkaline Phosphatase 54 (34-104) U/L Total Protein 6.6 (6.0-8.3) gm/dl Albumin 4.1 (3.4-5.0) gm/dl Globulin 2.5 (2.5-4.0) gm/dl Albumin/Globulin Ratio 1.6 (0.9-2) Triglycerides (0-150) mg/dl Cholesterol (0-200) mg/dl LDL Cholesterol, Calc mg/dl VLDL Cholesterol, Calc (0-30) mg/dl HDL Cholesterol mg/dl Cholesterol/HDL Ratio (0-5) Nasal Screen MRSA (PCR) (Negative) Urine Opiates Screen (Neg) Ur Methadone, Qual (Neg) Urine Barbiturates (Neg) Ur Phencyclidine (PCP) (Neg) U Amphetamin/Meth Scrn (Neg) MDMA (Ecstasy) Screen (Neg) U Benzodiazepines Scrn (Neg) Ur Cocaine Metabolite (Neg) U Marijuana (THC) Screen (Neg) SARS-CoV-2, RNA, NAAT NEGATIVE (NEGATIVE) Resident Activity Tracking Resident Involvement: Resident Care Provided Care Provided: Adult Hospital Medicine
[2022-01-29 11:29] LABS: Hematocrit (blood only) 46.4 % (40.1-51.0); Hemoglobin 16.8 g/dl (14.0-18.0); Mean Corpuscular Hemoglobin 32.9 pg (25.0-34.0); Mean Corpuscular Hgb Conc 36.2 g/dL (32.0-36.0); Mean Corpuscular Volume 90.8 fL (80.0-100.0); Mean Platelet Volume 9.4 fL (9.4-12.4); Platelet Count 217 K/uL (130-400); RDW Coefficient of Variation 12.7 % (11.5-14.5); RDW Standard Deviation 42.3 fL (36.4-46.3); Red Blood Count 5.11 M/uL (4.63-6.08); White Blood Count 5.67 K/ul (4.8-10.8)
[2022-01-29 11:49] LABS: Calcium 9.4 mg/dl (8.5-10.1); Creatinine Clr Calc Pharmacy 143.4 ml/min; Est GFR (African American) 127.1 ml/min; Est GFR (Non-African American) 109.6 ml/min; Potassium 4.1 mmol/L (3.5-5.1)
--- NOTE | 2022-01-29 11:59 | Billing Data ---
Date of Service January 29, 2022 Coding Level of Care Code 34127 Subseq Hosp Care Lvl 2
--- NOTE | 2022-01-29 13:21 | CT Scan Report ---
CT head/brain wo con CLINICAL HISTORY: 41 years-old Male with r/o bleed. Acute headache TECHNIQUE: Multiple axial CT images of the head were obtained without contrast. A dose lowering tech nique was utilized adhering to the principles of ALARA. CT DOSE: 638.56 mGycm COMPARISON: Brain MRI and head CT 01/28/2022 FINDINGS: No acute intracranial hemorrhage, midline shift, intracranial mass, hydrocephalus, territorial ischem ia or abnormal extra-axial collection. The subcentimeter acute infarct within the left frontal lobe c entrum semiovale is better visualized on yesterday's brain MRI. Low-lying cerebellar tonsils. The calvarium is intact. The paranasal sinuses, mastoid air cells, and middle ear cavities are clear . IMPRESSION: 1. No acute intracranial hemorrhage or midline shift. 2.The subcentimeter acute infarct within the left frontal lobe centrum semiovale is better visualized on yesterday's brain MRI. ACT 112: Negative or not required by law. The above report was generated using voice recognition software. It may contain grammatical, syntax o r spelling errors. Electronically signed by: Valentin Padilla M.D. 01/29/2022 1:19 PM
[2022-01-29] MEDS ORDERED: CLOPIDOGREL BISULFATE 75 MG TAB PO SCH (14:00)
[2022-01-29] MEDS ORDERED: ASPIRIN 81 MG ECTAB PO SCH (14:00)
[2022-01-29] MEDS ORDERED: STROKE PATIENT DISCHARGE STA (14:01)
--- NOTE | 2022-01-29 14:20 | Discharge Summary ---
Date of Service January 29, 2022 Admission HPI Per Admitting Provider Mr. Nichole is a 41 year old Male who drove himself to the ED today after he started experiencing numbness and loss of fine motor skills in his right hand which progressed to feeling like he could not move his right leg. He said that he had just arrived to [facility] ([place] where he was supposed to sign some paperwork for his new job position he accepted and he could not sign his name. He called his , Stefanie, who said he should go to the hospital. On arrival, he was a stroke alert and tele consult was held with [facility] and Dr. Trevino who suggested TNK administration which took place at 1130. Head CT and CTA of head and neck were unremarkable. He reports smoking cigarettes 1ppd x20 years. He reports consuming about 300-400 mL of bourbon whiskey daily. His last drink was 01/27 at 2300. He states that he has gone a day or two without any alcohol intake; but it has been months since he has missed a day of drinking. He denies recreational drug use. He reports being consistent with seeing his outpatient provider on a routine basis and has not been told he has HTN or HLD. He did have a lipid panel drawn in November with an elevated LDL, but per patient he did eat the morning of his blood work; will check again while here. He denies any family history of CVA or cardiac issues. He is sitting upright in his hospital bed in no apparent distress. He was able to hold a meaningful conversation with accuracy and no difficulty with word finding. He denies COYNE, dizziness, SOB, Cp, palpitations, N/V/D, or ataxia. He was witnessed standing and using a urinal without ambulation or balance challenge. Pt is waiting to go to MRI now and will proceed to ICU for admission due to post-TNK administration. I was able to discuss in depth with Dr. Dos Santos who accepted this patient to ICU and also discussed via [employer] with Neurology. I personally was able to review all current laboratory work and diagnostic images obtained in the ED. Additionally, I was able to review the patients past medication reconciliation and history with direct visualization in the patients chart. This patient was discussed with the hospitalist admitting attending, Dr. Nelson. Please see A/P for further details. Admission Exam Per Admitting Provider Neuro: AAOx4, PERRLA, no aphagia, memory changes, CNII-XII grossly intact post TNK administration HEENT: head normocephalic, moist mucus membranes CV: S1/S2, (-) M/G/R, (-) edema, cap refill < 3 seconds Resp: Lungs CTA in all ambriz. On RA GI: Abdomen S/NT/ND, Ax4 bowel sounds, (-) CVA tenderness Musculoskeletal: 5/5 B/L UE strength, 5/5 B/L LE strength. No gait disturbance Skin: (-) rashes , (-) erythema. Psych: euthymic mood Principal Diagnosis Acute ischemic stroke status post tPA Discharge Exam Constitutional: WD/WN, vitals as above, NAD, sitting up in bed, pleasant, c onversing easily Respiratory: normal respiratory effort, lungs clear to auscultation, no wheeze, rales, rhonchi. Normal insp/exp effort, no accessory muscle use Cardiovascular: RRR, no murmur, no edema Vessels: no JVD or carotid bruit Chest: normal inspection of chest Abdomen: normal bowel sounds, soft, nontender, no hepatosplenomegaly Musculoskeletal: no cyanosis or clubbing, extremities motor strength 5/5 Skin: no rashes, warm and dry normal turgor Neurologic: PERRL, EOMI, accommodation nl, no face palsy, no dysarthria CN's II- XI intact bilaterally and moves all extremities Psychiatric: A+Ox3, euthymic affect Lymphatic: no cervical or axillary lymphadenopathy : deferred Discharge Data Allergies Allergy/AdvReac Type Severity Reaction Status Date / Time No Known Allergies Allergy Unverified 01/28/22 11:29 Consultations 01/28/22 11:50 Consult Tube Pusher Routine 01/28/22 12:02 ED Decision to Admit Stat 01/28/22 12:07 Consult Neurology Stat 01/28/22 14:01 Consult Tube Pusher Routine Ordered Studies 01/28/22 10:40 CT head/brain wo con Stat 01/28/22 10:46 CT angio head w con Stat CT angio neck with con Stat 01/28/22 12:03 MR brain wo con Stat 01/29/22 12:00 CT head/brain wo con Routine Hospital Course (1) Acute cerebrovascular accident (CVA): (2) Thrombolytic therapy administered within 2 hours of onset of symptoms: (3) Tobacco abuse: (4) Alcohol use: Plan Patient is a 41-year-old male with no known significant past medical history presented to the ED after he started to experience numbness and weakness on his right arm which slowly progressed on his right leg. On arrival to the ED, telestroke was called. CT head and CT angio head and neck were unremarkable. tPA was administered. MRI brain showed punctate infarct in the posterior left frontal lobe. Patient was admitted to ICU for observation after the tPA. He was also started on Lipitor 40 mg once daily and neurology was consulted. Repeat CT head without contrast was done after 24 hours of tPA which did not show any bleeding. Patient was started on aspirin and Plavix. Echocardiogram was done which was unremarkable. Telemetry did not show any arrhythmia. PT OT evaluation was done. Patient did not have any weakness at discharge. Patient was discharged on aspirin and Plavix along with Lipitor. Plavix was to be stopped after total of 21 days. He was instructed to follow-up with primary care doctor and neurologist as outpatient. He verbalized and understood the instructions. Total Time Total Time Spent Total Time Spent (In Minutes): 35 Total Time Includes: Examination of the Patient, Discharge Planning, Medication Reconciliation, Communication With Other Providers and Other Discharge Plan Discharge Items Patient Disposition: Home - Self-Care Reason For Visit: POST TNK Discharge Diagnosis: Acute ischemic stroke status post tPA Activity: Resume your previous activity Non-emergency contact: Primary Care Provider Call non-emergency contact if: you have any medication questions and your s ymptoms worsen Follow-up/Referrals: Suzie Gonzales PA-C [Physician Milk Tanker Driver] - (Date & Time 03/02/2022 11:20 AM Provider Suzie Gonzales PA-C Department Neurology [facility] ) Jaspreet Farmer MD [Primary Care Provider] - (Date & Time 02/03/2022 3:00 PM Provider Latrice Dennis DO Department Family Practice [facility] ) Diet: Regular Addtl Attending Provider Instructions: You were admitted to the hospital with acute stroke. You received tPA ( thrombolytics). The repeat CT head after 24 hours did not show any bleed. You will be started on following medications: 1) Please take Lipitor 40mg once daily for hyperlipidemia. It lowers your cholesterol and decreases the risks of further strokes. 2) Please take Plavix Once daily for 20 more days starting tomorrow. Please take aspirin in definitively. It also decreases the risks of further strokes. Please follow-up with your primary care doctor as soon as possible. Please follow-up with neurologist. Pending Studies at Discharge: No Stand-Alone Forms: Medications to Prevent Stroke, My [facility] [employer], Smoking Cessation Medications and DC Order Prescriptions: New atorvastatin 40 mg Tablet 40 mg PO QAM Qty: 30 0RF clopidogrel 75 mg Tablet 75 mg PO QAM 20 Days Qty: 20 0RF aspirin 81 mg Tablet,Delayed Release (Dr/Ec) 81 mg PO QAM Qty: 30 0RF Continued trazodone 50 mg tablet 50 mg PO HS Rx Instructions: PER PT "USED FOR ABOUT 3 WKS, DIDN'T REALLY HELP, HAVEN'T TAKEN FOR ABOUT A WK NOW". Discharge Orders: Discharge Order (Routine); Ordered 01/29/22 Ordered By: Emre Stahl Admission Data Admit Date/Time: 01/28/22 12:06 Attending Provider: Emre Stahl Admit Provider: Rusty Nelson Primary Care Provider: Jaspreet Farmer Other Providers: Nader Dos Santos ; Rusty Nelson ; Placido Rodriguez
--- NOTE | 2022-01-29 14:57 | Pharmacy Report ---
Pharmacist Stroke Counseling - Date of Service January 29, 2022 - Scope: Pharmacy has been consulted to provide medication discharge counseling for this patient admitted with ischemic stroke as per the Pharmacist Discharge Counseling for Stroke Patients Protocol. - Medications on Discharge: Home Medications Medication Instructions Recorded Confirmed trazodone 50 mg tablet 50 mg PO HS 01/28/22 01/28/22 New Rx's Medication Instructions Recorded aspirin 81 mg tablet,delayed 81 mg PO QAM #30 tabs 01/29/22 release atorvastatin 40 mg tablet 40 mg PO QAM #30 tabs 01/29/22 clopidogrel 75 mg tablet 75 mg PO QAM 20 days #20 tabs 01/29/22 - Action: The above medications, specifically ones for stroke treatment/prophylaxis, have been reviewed in detail with the patient and/or patient business representative(s) prior to discharge. This includes indication, common adverse reactions, drug interactions, and medication administration. Medication counseling has been employed using the teach-back method to ensure understanding. - Outcome: The patient and/or patient business representative(s) have demonstrated understanding of the medications. Additional comments: Encouraged patient to monitor closely for s/s of bleeding while on aspirin and Plavix and report concerns to his provider. Instructed patient to take both aspirin and Plavix x 20 days (received dose 1 of 21 in house), then STOP Plavix and continue aspirin. Patient is familiar with aspirin - has used in the past. Patient denies questions/concerns regarding medications. Thank you for allowing pharmacy to be involved in the care of this patient. Please call [phone] with any additional questions
== END 2022-01-29 15:25 | disposition home or self-care (01) | DRG 63 ==
LOC: ED 10:33 → SUATTDRO 12:06 → 1E 12:06